=== PATIENT | female | born 1940 | race Caucasian/White ===

== ENCOUNTER 2019-09-19 07:48 | Outpatient (CLI) | payer MEDICARE, OTHER, SELFPAY ==
[2019-09-19 08:15] LABS: Hematocrit 38.7 % (37.0-47.0); Hemoglobin 13.1 g/dL (12.0-15.0); Mean Corpuscular HGB Conc 33.9 g/dl (32-36); Mean Corpuscular Hemoglobin 33.3 pg (26-34); Mean Corpuscular Volume 98.5 fl (80-100); Mean Platelet Volume 11.5 fl (7.4-10.4); Platelet Count Result 141 k/mm3 (150-375); Red Blood Count 3.93 M/mm3 (4.2-5.4); Red Cell Distribution Width 12.5 % (11.5-14.5); White Blood Count 4.6 K/mm3 (4.5-10.0)
[2019-09-19 08:29] LABS: Alanine Aminotransferase 18 U/L (4-35); Albumin Level 4.4 g/dL (3.5-5.1); Alkaline Phosphatase 40 U/L (38-126); Anion Gap 11.5 mmol/L (7-16); Aspartate Amino Transferase 32 U/L (14-36); Bilirubin,Total 0.7 mg/dL (0.2-1.3); Blood Urea Nitrogen 16 mg/dL (7-17); Calcium 9.2 mg/dL (8.4-10.2); Carbon Dioxide 26 mmol/L (22-30); Chloride 105 mmol/L (98-107); Cholesterol 202 mg/dL (0-200); Estimated Glomerular Filt Rate 60; Glucose 90 mg/dL (65-105); HDL Direct 64 mg/dL; Potassium 4.5 mmol/L (3.4-5.0); Sodium 138 mmol/L (137-145); Triglycerides 113 mg/dL (<150)
[2019-09-19 08:40] LABS: LDL Cholesterol Direct 111 mg/dL
[2019-09-19 09:11] LABS: Free T4 Free Thyroxine 0.75 ng/mL (0.78-2.19)
[2019-09-19 09:42] LABS: Folic Acid > 20.0 ng/mL (2.76->20)
== END 2019-09-19 07:49 | disposition home or self-care (01) ==
PROVIDERS: PCP Internal Medicine; Visit Provider Internal Medicine
DX: E03.9 Hypothyroidism, unspecified (principal); R53.83 Other fatigue; E78.49 Other hyperlipidemia
CPT/HCPCS: 36415; 80053; 80061; 82607; 82746; 84439; 84443; 85027

== ENCOUNTER 2019-12-13 08:18 | Outpatient (CLI) | payer MEDICARE, OTHER, SELFPAY ==
--- NOTE | 2019-12-13 11:00 | NEURO_ITS ---
Patient Number: [id number] Impression: # Complains of imbalance; Not diabetic. # No Carpal Tunnel Syndrome or ulnar neuropathy. 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 # Needle/EMG exam abnormal in lower extremities with neurogenic changes. Nerve Conduction Studies Anti Sensory Summary Table Stim Site NR Peak (ms) P-T Amp (?V) Site1 Site2 Delta-P (ms) Dist (cm) Aston (m/s) Left Median Anti Sensory (2-3nd Digit) Wrist 3.3 49.3 Wrist 2-3nd Digit 3.3 14.0 42 Wrist 3.5 49.4 Wrist 2-3nd Digit 3.3 14.0 42 Right Median Anti Sensory (2-3nd Digit) Wrist 3.4 28.6 Wrist 2-3nd Digit 3.4 14.0 41 Wrist 3.6 31.6 Wrist 2-3nd Digit 3.4 14.0 41 Left Radial Anti Sensory (Base 1st Digit) Wrist 2.2 22.3 Wrist Base 1st Digit 2.2 0.0 Right Radial Anti Sensory (Base 1st Digit) Wrist 2.0 21.3 Wrist Base 1st Digit 2.0 0.0 Left Sup Fibular Anti Sensory (Ant Lat Mall) 14 cm 4.1 16.6 14 cm Ant Lat Mall 4.1 16.0 39 Right Sup Fibular Anti Sensory (Ant Lat Mall) 14 cm 4.4 12.1 14 cm Ant Lat Mall 4.4 16.0 36 Left Sural Anti Sensory (Lat Mall) Calf 4.0 4.4 Calf Lat Mall 4.0 16.0 40 Right Sural Anti Sensory (Lat Mall) Calf 4.1 8.5 Calf Lat Mall 4.1 16.0 39 Left Ulnar Anti Sensory (5th Digit) Wrist 2.8 66.8 Wrist 5th Digit 2.8 14.0 50 Right Ulnar Anti Sensory (5th Digit) Wrist 2.6 41.7 Wrist 5th Digit 2.6 14.0 54 Motor Summary Table Stim Site NR Onset (ms) O-P Amp (mV) Site1 Site2 Delta-0 (ms) Dist (cm) Aston (m/s) Left Median Motor (Abd Poll Brev) Wrist 3.4 1.0 Elbow Wrist 5.4 28.0 52 Elbow 8.8 1.1 Right Median Motor (Abd Poll Brev) Wrist 3.3 3.9 Elbow Wrist 5.5 29.0 53 Elbow 8.8 1.5 Left Peroneal Motor (Vastus Med) NO RESPONSE Ankle NR Popit Ankle 0.0 Popit NR Right Peroneal Motor (Vastus Med) NO RESPONSE Ankle NR Popit Ankle 0.0 Popit NR Left Tibial Motor (Abd Eugene Brev) Ankle 4.5 1.0 Knee Ankle 9.8 44.0 45 Knee 14.3 1.3 Right Tibial Motor (Abd Eugene Brev) Ankle 4.5 1.6 Knee Ankle 9.8 43.0 44 Knee 14.3 1.5 Left Ulnar Motor (Abd Dig Minimi) Wrist 2.4 5.0 A Elbow Wrist 4.9 27.0 55 A Elbow 7.3 3.9 Right Ulnar Motor (Abd Dig Minimi) Wrist 2.7 5.1 A Elbow Wrist 5.3 28.0 53 A Elbow 8.0 4.4 F Wave Studies NR F-Lat (ms) L-R F-Lat (ms) Left Median (Mrkrs) (Abd Poll Brev) 28.17 0.06 Right Median (Mrkrs) (Abd Poll Brev) 28.23 0.06 Left Peroneal (Mrkrs) (EDB) DISPERSED RESPONSE NR Right Peroneal (Mrkrs) (EDB) 56.02 Left Tibial (Mrkrs) (Abd Hallucis) 56.85 0.40 Right Tibial (Mrkrs) (Abd Hallucis) 56.46 0.40 Left Ulnar (Mrkrs) (Abd Dig Min) 28.85 0.18 Right Ulnar (Mrkrs) (Abd Dig Min) 28.67 0.18 EMG Side Muscle Nerve Root Ins Act Fibs Amp Dur Recrt Comment Right 1stDorInt Ulnar C8-T1 Nml Nml Nml Nml Nml Right Ext Indicis Radial (Post Int) C7-8 Nml Nml Nml Nml Nml Right Ext Digitorum Radial (Post Int) C7-8 Nml Nml Nml Nml Nml Right BrachioRad Radial C5-6 Nml Nml Nml Nml Nml Right PronatorTeres Median C6-7 Nml Nml Nml Nml Nml Right Abd Poll Brev Median C8-T1 Nml Nml Nml Nml Nml
== END 2019-12-13 08:19 | disposition home or self-care (01) ==
PROVIDERS: PCP Internal Medicine; Visit Provider Psychiatry & Neurology Neurology
DX: G62.9 Polyneuropathy, unspecified (principal)
CPT/HCPCS: 95886; 95913

== ENCOUNTER 2019-12-23 08:14 | Outpatient (CLI) | payer MEDICARE, OTHER, SELFPAY ==
--- NOTE | ~2019-12-23 | MR_ITS ---
EXAMINATION: MR brain/brain stem wo con EXAM DATE: 12/23/2019 10:44 INDICATION: Memory loss. TECHNIQUE: Magnetic resonance imaging (MRI) of the brain/brain stem obtained without contrast. Corwinitt al T1, axial diffusion, gradient echo (T2*), T1, T2, FLAIR sequences obtained. There is no prior st udy for comparison. FINDINGS: There are no areas of restricted diffusion to suggest acute infarction. There is no acute hemorrhage seen on the T2*, a hemosiderin sensitive sequence. No intraparenchymal brain mass lesion. There is mild periventricular and subcortical T2/FLAIR signal hyperintensity, nonspecific but probab ly related to small vessel ischemic disease (microangiopathy). There is moderate prominence of the sulci and ventricles related to cerebral atrophy. There are no extra-axial collections. Flow voids are seen in the cerebral arteries on the T2-weighted sequences consistent with their expected patenc y. The orbits are unremarkable. Soft tissue is unremarkable. IMPRESSION: 1. No acute intracranial findings. 2. Chronic age related findings. Reviewed, dictated and finalized at location B. EL RIFLER
--- NOTE | ~2019-12-23 | MR_ITS ---
EXAMINATION: MR cervical spine wo con DATE: 12/23/2019 11:03 INDICATION: Cervical disc disorder with myelopathy. TECHNIQUE: Magnetic resonance imaging (MRI) of the cervical spine was performed without intravenous c ontrast. Sequences included sagittal T2-weighted FSE, sagittal STIR FSE, sagittal T1-weighted FSE, ax ial MERGE, and axial T2-weighted FSE. COMPARISON: None FINDINGS: There is 6 degrees levocurvature of cervical spine. There is kyphosis of lower cervical spi ne. Vertebral body heights are normal. There is severely decreased disc height at C4-C5 and moderatel y decreased disc height at C5-C6, C6-C7, and C7-T1. The spinal cord signal intensity is normal. The f ollowing disc levels are specifically discussed: C2-C3: There is a central extrusion. There is no uncovertebral joint osteoarthritis. There is severe right and mild left facet joint osteoarthritis. There is mild right neural foraminal stenosis. There is no central canal stenosis. C3-C4: The disc is bulging. There is mild bilateral uncovertebral joint osteoarthritis. There is tatiana re right and moderate left facet joint osteoarthritis. There is moderate right and mild left neural f oraminal stenosis. There is mild central canal stenosis. C4-C5: The disc is bulging. There is severe bilateral uncovertebral joint osteoarthritis. There is an kylosis of right facet joint with moderate hypertrophy. There is mild bilateral neural foraminal sten osis. There is mild central canal stenosis. C5-C6: The disc is bulging. There is severe bilateral uncovertebral joint osteoarthritis. There is mo derate bilateral facet joint osteoarthritis. There is mild right and moderate left neural foraminal s tenosis. There is mild central canal stenosis. C6-C7: The disc is bulging. There is severe bilateral uncovertebral joint osteoarthritis. There is mi ld bilateral facet joint osteoarthritis. There is mild bilateral neural foraminal stenosis. There is mild central canal stenosis. C7-T1: The disc is bulging. There is mild right and severe left uncovertebral joint osteoarthritis. T here is severe right and moderate left facet joint osteoarthritis. There is mild bilateral neural for aminal stenosis. There is no central canal stenosis. IMPRESSION: 1. Severe cervical spondylosis. Reviewed, dictated and finalized at location A. ADMINISTRATOR
--- NOTE | 2019-12-27 10:15 | WPDNEUROLOGY ---
Neurology EEG Report General Information Date of Study: 12/23/19 TEST EEG DIAGNOSIS memory loss CONDITION OF RECORDING awake and drowsy EEG NUMBER [id number] CLINICAL HISTORY patient reported she has episodes of forgetfulness and sometime has trouble walking. She tends to veer off to the left. EEG DESCRIPTION Basic resting occipital frequency consists of low to medium voltage 8 to 10 hertz per 2nd alpha admixed with large amount of low-voltage 15 to 18 hertz per 2nd beta. Photic stimulation produced poor drive. hyperventilation not done. Bilateral symmetrical sleep activity seen during sleep .non paroxysmal, nonfocal ,nonlateralizing. IMPRESSION normal record during wakefulness drowsiness and sleep
== END 2019-12-23 08:15 | disposition home or self-care (01) ==
PROVIDERS: PCP Internal Medicine; Visit Provider Psychiatry & Neurology Neurology
DX: R41.3 Other amnesia (principal); M50.00 Cervical disc disorder with myelopathy, unspecified cervical region; M47.892 Other spondylosis, cervical region
CPT/HCPCS: 70551; 72141; 95816

== ENCOUNTER 2020-03-09 09:35 | Outpatient (CLI) | payer MEDICARE, OTHER, SELFPAY ==
[2020-03-09 10:11] LABS: Basophils Absolute Auto 0.1 K/mm3 (0.0-0.1); Basophils Percent Auto 1.1 % (0.2-1.2); Eosinophils Absolute Auto 0.1 K/mm3 (0-0.3); Eosinophils Percent Auto 2.9 % (0-4.4); Hematocrit 39.7 % (37.0-47.0); Hemoglobin 13.5 g/dL (12.0-15.0); Immature Granulocyte Absolute 0.01 K/mm3 (0.00-0.031); Immature Granulocyte Percent A 0.2 % (0-0.5); Immature Platelet Fraction Pct 10.3 % (0.9-11.2); Lymphocytes Absolute Auto 1.95 K/mm3 (0.9-3.2); Lymphocytes Percent Auto 43.4 % (18.3-44.2); Mean Corpuscular Hemoglobin 34.1 pg (26-34); Mean Corpuscular Volume 100.3 fl (80-100); Mean Platelet Volume 11.5 fl (7.4-10.4); Monocytes Absolute Auto 0.4 K/mm3 (0.1-0.6); Monocytes Percent Auto 8.5 % (2.6-8.5); Neutrophils Percent Auto 43.9 % (45.5-73.1); Platelet Count Result 147 k/mm3 (150-375); Red Blood Count 3.96 M/mm3 (4.2-5.4); Red Cell Distribution Width 12.7 % (11.5-14.5); White Blood Count 4.5 K/mm3 (4.5-10.0)
[2020-03-09 10:21] LABS: Alanine Aminotransferase 20 U/L (4-35); Albumin Level 4.4 g/dL (3.5-5.1); Alkaline Phosphatase 45 U/L (38-126); Anion Gap 1 mmol/L (8-16); Aspartate Amino Transferase 33 U/L (14-36); Bilirubin,Total 0.8 mg/dL (0.2-1.3); Blood Urea Nitrogen 18 mg/dL (7-17); Calcium 9.6 mg/dL (8.4-10.2); Carbon Dioxide 30 mmol/L (22-30); Chloride 106 mmol/L (98-107); Cholesterol 211 mg/dL (0-200); Estimated Glomerular Filt Rate 53; Glucose 95 mg/dL (65-105); HDL Direct 72 mg/dL; Potassium 4.7 mmol/L (3.4-5.0); Sodium 137 mmol/L (137-145); Triglycerides 159 mg/dL (<150)
[2020-03-09 10:34] LABS: LDL Cholesterol Direct 115 mg/dL
[2020-03-09 11:15] LABS: Free T4 Free Thyroxine 0.83 ng/mL (0.78-2.19)
[2020-03-09 11:36] LABS: Folic Acid > 20.0 ng/mL (2.76->20)
== END 2020-03-09 09:36 | disposition home or self-care (01) ==
PROVIDERS: Family Provider Internal Medicine; PCP Internal Medicine; Visit Provider Internal Medicine
DX: R53.83 Other fatigue (principal); R79.89 Other specified abnormal findings of blood chemistry; E03.9 Hypothyroidism, unspecified; E78.49 Other hyperlipidemia
CPT/HCPCS: 36415; 80053; 80061; 82607; 82746; 84439; 84443; 85025; 85055

== ENCOUNTER 2020-06-12 08:52 | Outpatient (CLI) | payer MEDICARE, OTHER, SELFPAY ==
--- NOTE | ~2020-06-12 | MM_ITS ---
EXAMINATION: MM screening [facility] BI w [facility]ides HISTORY: Screening mammogram TECHNIQUE: Craniocaudal and mediolateral oblique 3-D tomosynthesis images were obtained and synthetic 2-D images were generated. CAD analysis was submitted and interpreted. COMPARISON: 12/07/2018, 11/16/2017, 11/03/2016 bilateral digital screening mammogram examinations BREAST PARENCHYMAL COMPOSITION: The breasts are heterogeneously dense, which may obscure small masses . FINDINGS: There is no evidence of suspicious mass, calcification, or architectural distortion to sugg est malignancy in either breast. There has been no suspicious interval change. IMPRESSION: 1. No mammographic evidence of malignancy. 2. Recommend routine screening mammography in one year. BI-RADS Category 1: Negative Reviewed, dictated and finalized at location A.
== END 2020-06-12 08:53 | disposition home or self-care (01) ==
LOC: ANHIMG 08:58
PROVIDERS: PCP Internal Medicine; Visit Provider Obstetrics & Gynecology
DX: Z12.31 Encounter for screening mammogram for malignant neoplasm of breast (principal)
CPT/HCPCS: 77063; 77067

== ENCOUNTER 2020-07-18 13:24 | Outpatient (CLI) | payer MEDICARE, OTHER, SELFPAY ==
--- NOTE | ~2020-07-18 | XR_ITS ---
XR lumbar spine min 4V DATE: 07/18/2020 13:44 INDICATION: Low back pain. No injury. TECHNIQUE: AP projection. Flexion, extension and neutral lateral views. COMPARISON: None FINDINGS: There is moderate rotatory dextroscoliosis of the lumbar spine. Diffuse osteopenia. There is a transitional lumbosacral vertebra. There is grade 1 anterolisthesis at L5-S1, stable in flexion, extension and neutral. There is moderate degenerative disc disease of the lumbar spine. No fracture or bone destruction is e vident. The lumbar pedicles appear intact. The sacral iliac joints appear unremarkable. IMPRESSION: Dextroscoliosis Osteopenia Grade 1 anterolisthesis at L5-S1 Moderate degenerative disc disease Reviewed, dictated and finalized at location A.
== END 2020-07-18 13:25 | disposition home or self-care (01) ==
LOC: ANHIMG 13:27
PROVIDERS: PCP Internal Medicine; Visit Provider Nurse Practitioner Family
DX: M47.817 Spondylosis without myelopathy or radiculopathy, lumbosacral region (principal)
CPT/HCPCS: 72110

== ENCOUNTER → 2020-08-22 09:46 | Outpatient (CLI) | payer MEDICARE, OTHER, SELFPAY ==
--- NOTE | ~2020-08-22 | MR_ITS ---
EXAMINATION: MR lumbar spine wo con DATE: 08/22/2020 10:53 INDICATION: Low back pain. TECHNIQUE: Magnetic resonance imaging (MRI) of the lumbar spine was performed without intravenous con trast. Sequences included sagittal T2-weighted FSE, sagittal T2-weighted FS FSE, sagittal T1-weighted FSE, and axial T2-weighted FSE. COMPARISON: Lumbar spine radiograph 07/18/2020, chest 2 views 12/01/2012 FINDINGS: There are hypoplastic ribs at L1. S1 is a transitional segment. There is 3 mm anterolisthes is of L4 on L5 and 6 mm anterolisthesis of L5 on S1. There is 18 degrees dextroscoliosis of thoracolu mbar spine. Vertebral body heights are normal. There is mildly decreased disc height at T12-L1, L1-L2 , and L2-L3, moderately decreased disc height at L3-L4, and mildly decreased L4-L5. There is ligame ntum flavum hypertrophy at the disc levels from L1-L2 through L4-L5. The distal spinal cord signal in tensity is normal. The conus medullaris is at L1. The following disc levels are specifically discusse d: L1-L2: The disc is bulging. There is severe bilateral facet joint osteoarthritis. There is mild bilat eral neural foraminal stenosis. There is mild central canal stenosis. L2-L3: The disc is bulging and has an annular fissure. There is severe bilateral facet joint osteoart hritis. There is mild right and moderate left neural foraminal stenosis. There is mild central canal stenosis. L3-L4: The disc is bulging and has an annular fissure. There is severe bilateral facet joint osteoart hritis. There is mild bilateral neural foraminal stenosis. There is mild central canal stenosis. L4-L5: The disc is bulging. There is severe bilateral facet joint osteoarthritis. There is mild bilat eral neural foraminal stenosis. There is mild central canal stenosis. L5-S1: The disc is bulging. There is severe bilateral facet joint osteoarthritis. There is moderate b ilateral neural foraminal stenosis. There is mild central canal stenosis. IMPRESSION: 1. Moderate lumbar spondylosis. Reviewed, dictated and finalized at location A.
== END ==
PROVIDERS: PCP Internal Medicine; Visit Provider Nurse Practitioner Family
DX: M47.896 Other spondylosis, lumbar region (principal)
CPT/HCPCS: 72148

== ENCOUNTER 2020-08-23 07:55 | Outpatient (CLI) | payer MEDICARE, OTHER, SELFPAY ==
[2020-08-23 08:45] LABS: Basophils Absolute Auto 0.1 K/mm3 (0.0-0.1); Basophils Percent Auto 1.4 % (0.2-1.2); Eosinophils Absolute Auto 0.2 K/mm3 (0-0.3); Eosinophils Percent Auto 3.8 % (0-4.4); Hematocrit 38.6 % (37.0-47.0); Hemoglobin 12.9 g/dL (12.0-15.0); Immature Granulocyte Absolute 0.01 K/mm3 (0.00-0.031); Immature Granulocyte Percent A 0.2 % (0-0.5); Immature Platelet Fraction Pct 9.9 % (0.9-11.2); Lymphocytes Absolute Auto 2.09 K/mm3 (0.9-3.2); Lymphocytes Percent Auto 47.3 % (18.3-44.2); Mean Corpuscular HGB Conc 33.4 g/dl (32-36); Mean Corpuscular Hemoglobin 33.9 pg (26-34); Mean Corpuscular Volume 101.6 fl (80-100); Mean Platelet Volume 11.5 fl (7.4-10.4); Monocytes Absolute Auto 0.4 K/mm3 (0.1-0.6); Neutrophils Absolute Auto 1.7 K/mm3 (1.3-6.7); Neutrophils Percent Auto 38.3 % (45.5-73.1); Platelet Count Result 141 k/mm3 (150-375); Red Cell Distribution Width 13.3 % (11.5-14.5); White Blood Count 4.4 K/mm3 (4.5-10.0)
[2020-08-23 09:04] LABS: Alanine Aminotransferase 18 U/L (4-35); Albumin Level 4.3 g/dL (3.5-5.1); Alkaline Phosphatase 46 U/L (38-126); Anion Gap 9 mmol/L (8-16); Aspartate Amino Transferase 31 U/L (14-36); Bilirubin,Total 0.9 mg/dL (0.2-1.3); Blood Urea Nitrogen 17 mg/dL (7-17); Calcium 9.6 mg/dL (8.4-10.2); Carbon Dioxide 25 mmol/L (22-30); Chloride 105 mmol/L (98-107); Cholesterol 218 mg/dL (0-200); Estimated Glomerular Filt Rate 60; Glucose 95 mg/dL (65-105); HDL Direct 70 mg/dL; Potassium 4.4 mmol/L (3.4-5.0); Sodium 139 mmol/L (137-145); Triglycerides 136 mg/dL (<150)
[2020-08-23 09:15] LABS: LDL Cholesterol Direct 98 mg/dL
[2020-08-23 10:14] LABS: Folic Acid > 20.0 ng/mL (2.76->20)
[2020-08-23 10:32] LABS: Free T4 Free Thyroxine 0.92 ng/mL (0.78-2.19)
== END 2020-08-23 07:56 | disposition home or self-care (01) ==
LOC: ANHLAB 07:58
PROVIDERS: PCP Internal Medicine; Visit Provider Internal Medicine
DX: E03.9 Hypothyroidism, unspecified (principal); R53.83 Other fatigue; E78.49 Other hyperlipidemia
CPT/HCPCS: 36415; 80053; 80061; 82607; 82746; 84439; 84443; 85025; 85055

== ENCOUNTER 2020-10-23 11:01 | Emergency (ER) | payer MEDICARE, OTHER, SELFPAY ==
[2020-10-23 11:30] VITALS: BP 122/72; PULSE 69; RESP 14; TEMP 36.1; O2SAT 99
[2020-10-23 12:31] LABS: Basophils Absolute Auto 0.1 K/mm3 (0.0-0.1); Basophils Percent Auto 0.8 % (0.2-1.2); Eosinophils Absolute Auto 0.1 K/mm3 (0-0.3); Eosinophils Percent Auto 1.4 % (0-4.4); Hematocrit 36.3 % (37.0-47.0); Hemoglobin 12.4 g/dL (12.0-15.0); Immature Granulocyte Absolute 0.03 K/mm3 (0.00-0.031); Immature Granulocyte Percent A 0.5 % (0-0.5); Immature Platelet Fraction Pct 9.5 % (0.9-11.2); Lymphocytes Absolute Auto 1.81 K/mm3 (0.9-3.2); Lymphocytes Percent Auto 27.9 % (18.3-44.2); Mean Corpuscular HGB Conc 34.2 g/dl (32-36); Mean Corpuscular Hemoglobin 34.3 pg (26-34); Mean Corpuscular Volume 100.3 fl (80-100); Mean Platelet Volume 11.6 fl (7.4-10.4); Monocytes Absolute Auto 0.5 K/mm3 (0.1-0.6); Monocytes Percent Auto 7.7 % (2.6-8.5); Neutrophils Percent Auto 61.7 % (45.5-73.1); Platelet Count Result 148 k/mm3 (150-375); Red Blood Count 3.62 M/mm3 (4.2-5.4); Red Cell Distribution Width 12.6 % (11.5-14.5); White Blood Count 6.5 K/mm3 (4.5-10.0)
[2020-10-23 12:40] LABS: Alanine Aminotransferase 14 U/L (4-35); Albumin Level 4.2 g/dL (3.5-5.1); Alkaline Phosphatase 43 U/L (38-126); Anion Gap 6 mmol/L (8-16); Aspartate Amino Transferase 26 U/L (14-36); Bilirubin,Total 0.8 mg/dL (0.2-1.3); Blood Urea Nitrogen 15 mg/dL (7-17); Calcium 9.5 mg/dL (8.4-10.2); Carbon Dioxide 25 mmol/L (22-30); Chloride 106 mmol/L (98-107); Estimated CRCL calculation 42 ml/min; Estimated Glomerular Filt Rate 60; Glucose 101 mg/dL (65-110); Lipase 27 U/L (23-300); Potassium 4.2 mmol/L (3.4-5.0); Sodium 137 mmol/L (137-145)
[2020-10-23 16:31] VITALS: BP 124/74; PULSE 66; RESP 18; TEMP 36.7; O2SAT 88
[2020-10-23 16:52] VITALS: PULSE 80; RESP 12; O2SAT 97
[2020-10-23 18:48] VITALS: BP 159/83; PULSE 63; RESP 16; TEMP 36.7; O2SAT 100
--- NOTE | 2020-10-23 19:17 | ED.GENADULT ---
HPI - General Adult General Chief complaint: Nausea/Vomiting/Diarrhea Stated complaint: digestive problem, diarrhea Time Seen by Provider: 10/23/20 18:48 Source: patient Mode of arrival: ambulatory Limitations: no limitations History of Present Illness HPI narrative: Patient presents for evaluation of GI symptoms. She indicates that several weeks ago she was experiencing constipation, not having bowel movement for 1 week. Her symptoms resolved without any intervention beyond her typical day to day behavior. She does consume prune juice daily. She states after her bout of constipation, she experienced diarrhea, with approximately 10 episodes daily. Her normal bowel pattern is once every 3 days. She has not experienced any blood or mucus in the stool/abdominal pain. She denies any fever or chills. No history of abdominal surgeries. She states her last colonoscopy was about 5 years ago. She states she has always had normal colonoscopies without the presence of polyps. She elected to not proceed with any further colonoscopies. She contacted GI, Dr. Dalal, and was advised that it would be several months before he could see her unless she was seen in the ER before his evaluation. She states that she did have c diff in the past but her current symptoms are not consistent with those experienced in the past with c diff. Related Data Home Medications Medication Instructions Recorded Confirmed turmeric 400 mg capsule mg PO 03/29/19 10/02/20 vitamin B complex 1 cap PO DAILY 03/29/19 10/02/20 cholecalciferol (vitamin D3) 25 25 mcg PO DAILY 03/23/20 10/02/20 mcg (1,000 unit) capsule donepezil 5 mg tablet 5 mg PO ONCE 03/23/20 10/02/20 Allergies Allergy/AdvReac Type Severity Reaction Status Date / Time bee pollen Allergy Intermediate Swelling Verified 10/23/20 19:42 venom-wasp Allergy Intermediate swelling Verified 10/23/20 19:42 adhesive Allergy Unknown RASH Verified 10/23/20 19:42 Review of Systems Review of Systems: CONSTITUTIONAL: Denies fever, chills, or sweats. EYES: Denies visual changes, redness, or discharge. ENT: Denies rhinorrhea, congestion, sore throat, or otalgia. CARDIOVASCULAR: Denies chest pain, palpitations, or edema. RESPIRATORY: Denies cough or dyspnea. GASTROINTESTINAL: Reports recent constipation, now resolved. Reports diarrhea. Denies abdominal pain, nausea, or vomiting. GENITOURINARY: Denies dysuria or hematuria. SKIN: Denies rash or itching. MUSCULOSKELETAL: Denies back pain, joint pain, or myalgia. NEUROLOGIC: Denies headache, numbness, dizziness, or weakness. PSYCHIATRIC: Denies anxiety or depression. FORMERLY [facility] Past Medical History Medical History (Updated 10/23/20 @ 20:05 by NORMAN NaranjoP, ) Anxiety disorder C. difficile colitis Depression Fatigue Hypothyroidism Other hyperlipidemia Sciatica of right side Surgical History Surgical History History of shoulder surgery Family History Family History Mother Patient's mother is Father Patient's father is Social History Social History Smoking status: Former smoker Second hand tobacco smoke exposure: No Smoking end date: 02/17/80 Alcohol intake: current Exam Narrative: GENERAL: Well-appearing, well-nourished, and in no acute distress. HEAD: Normocephalic, atraumatic. EYES: PERRLA and EOMI. ENT: Nares clear, no rhinorrhea or epistaxis. Mucous membranes moist. Oropharynx without tonsillar hypertrophy exudate or other lesions. Bilateral TMs pearly back nonbulging NECK: Supple. No adenopathy or masses. No carotid bruits or JVD CHEST: Clear to auscultation. No respiratory distress. No wheezes rales or rhonchi HEART: Regular rate and rhythm. No murmur heard. Normal peripheral pulses. ABDOMEN: Soft, non
[2020-10-23 20:20] VITALS: BP 130/80; PULSE 66; RESP 18; TEMP 36.8; O2SAT 98
== END 2020-10-23 20:20 | disposition home or self-care (01) ==
PROVIDERS: Emergency Medicine; Emergency Provider Nurse Practitioner; PCP Internal Medicine
DX: K59.01 Slow transit constipation (principal); R19.7 Diarrhea, unspecified; F41.9 Anxiety disorder, unspecified; F32.9 Major depressive disorder, single episode, unspecified; E03.9 Hypothyroidism, unspecified
CPT/HCPCS: 36415; 80053; 83690; 85025; 85055; 99283

== ENCOUNTER 2021-03-18 11:02 | Outpatient (CLI) | payer MEDICARE, OTHER, SELFPAY ==
[2021-03-18 11:57] LABS: Hematocrit 35.7 % (37.0-47.0); Hemoglobin 11.9 g/dL (12.0-15.0); Immature Platelet Fraction Pct 8.6 % (0.9-11.2); Mean Corpuscular HGB Conc 33.3 g/dl (32-36); Mean Corpuscular Hemoglobin 33.1 pg (26-34); Mean Corpuscular Volume 99.4 fl (80-100); Mean Platelet Volume 11.5 fl (7.4-10.4); Red Blood Count 3.59 M/mm3 (4.2-5.4); Red Cell Distribution Width 12.8 % (11.5-14.5); White Blood Count 4.2 K/mm3 (4.5-10.0)
[2021-03-18 12:02] LABS: Alanine Aminotransferase 17 U/L (4-35); Albumin Level 4.2 g/dL (3.5-5.1); Alkaline Phosphatase 57 U/L (38-126); Anion Gap 4 mmol/L (8-16); Aspartate Amino Transferase 44 U/L (14-36); Bilirubin,Total 0.5 mg/dL (0.2-1.3); Blood Urea Nitrogen 20 mg/dL (7-17); Calcium 9.5 mg/dL (8.4-10.2); Carbon Dioxide 26 mmol/L (22-30); Chloride 103 mmol/L (98-107); Estimated Glomerular Filt Rate 53; Glucose 98 mg/dL (65-110); Potassium 4.5 mmol/L (3.4-5.0); Sodium 133 mmol/L (137-145)
[2021-03-18 12:04] LABS: Platelet Count Result 147 k/mm3 (150-375)
[2021-03-18 12:47] LABS: Basophils Absolute Auto 0.1 K/mm3 (0.0-0.1); Basophils Percent Auto 1.1 % (0.2-1.2); Eosinophils Absolute Auto 0.1 K/mm3 (0-0.3); Eosinophils Percent Auto 1.8 % (0-4.4); Lymphocytes Absolute Auto 1.57 K/mm3 (0.9-3.2); Lymphocytes Percent Auto 36.1 % (18.3-44.2); Monocytes Absolute Auto 0.5 K/mm3 (0.1-0.6); Monocytes Percent Auto 10.8 % (2.6-8.5); Neutrophils Absolute Auto 2.2 K/mm3 (1.3-6.7); Neutrophils Percent Auto 50.2 % (45.5-73.1)
== END 2021-03-18 11:03 | disposition home or self-care (01) ==
LOC: ANHLAB 11:05
PROVIDERS: PCP Internal Medicine; Visit Provider Psychiatry & Neurology Psychiatry
DX: G31.84 Mild cognitive impairment of uncertain or unknown etiology (principal)
CPT/HCPCS: 36415; 80053; 85025; 85027; 85055

== ENCOUNTER 2021-03-28 12:30 | Outpatient (CLI) | payer MEDICARE, OTHER, SELFPAY ==
--- NOTE | ~2021-03-28 | MR_ITS ---
EXAMINATION: MR brain/brain stem wo con EXAM DATE: 03/28/2021 13:16 INDICATION: Mild cognitive disorder. TECHNIQUE: Magnetic resonance imaging (MRI) of the brain/brain stem obtained without contrast. Jesus Alberto al T1, axial diffusion, gradient echo (T2*), T1, T2, FLAIR sequences obtained. Comparison is made to prior examination from 12/23/2019. FINDINGS: There are no areas of restricted diffusion to suggest acute infarction. There is no acute hemorrhage seen on the T2*, a hemosiderin sensitive sequence. No intraparenchymal brain mass lesion. There is mild periventricular and subcortical T2/FLAIR signal hyperintensity, nonspecific but probab ly related to small vessel ischemic disease (microangiopathy). There is mild prominence of the sulc i and ventricles related to cerebral atrophy. There are no extra-axial collections. Flow voids are seen in the cerebral arteries on the T2-weighted sequences consistent with their expected patency. The orbits are unremarkable. Soft tissue is unremarkable. IMPRESSION: 1. No acute intracranial findings. 2. Chronic age related findings. Reviewed, dictated and finalized at location B. PACKER
== END 2021-03-28 12:31 | disposition home or self-care (01) ==
LOC: ANHIMG 12:35
PROVIDERS: PCP Internal Medicine; Visit Provider Psychiatry & Neurology Psychiatry
DX: G31.84 Mild cognitive impairment of uncertain or unknown etiology (principal)
CPT/HCPCS: 70551

== ENCOUNTER 2021-04-09 01:04 | Outpatient (CLI) | payer MEDICARE, OTHER, SELFPAY ==
--- NOTE | 2021-04-08 09:24 | PC.NURSE ---
Report to the Outpatient Waiting Room, entrance under the green pavilion located off [facility], at time __0930 on date __04/09/21 . PROCEDURE Time: 1130 . - You and your visitor will be asked a series of questions to screen for COVID 19 for your protection. - A mask is required within the hospital. Preoperative COVID Testing Requirements: No COVID Test needed if: (proof is required; if not received patient will have Rapid Test prior to entry) - Patient has received COVID Vaccine at least 14 days prior to procedure date or - Patient has positive COVID test result within last 90 days of surgery date. COVID Test needed if above criteria is not met If not COVID vaccinated a COVID test must be conducted within 72 hours of surgery and patient is asked to isolate self from time of testing until procedure. You will go to the [facility] for your COVID testing. The [facility] is located at the corner of [address] [facility]. You will only be called if COVID results are positive and your surgeon may reschedule your elective surgery date. NOTHING TO EAT OR DRINK 6 HOURS PRIOR TO PROCEDURE (0530) Take the following medications with a SIP of water the morning of surgery: __ALL ROUTINE MORNING MEDICATIONS Medications to discontinue per physician NONE Date to take last dose Please no make-up, nail greenlandic, hairspray, perfume, deodorant, or body powder the day of surgery. No jewelry (including any body piercings) or valuables the day of surgery, leave them at home. Please take a shower or bath the night before, or the morning of, surgery with an antibacterial soap. Wear comfortable, loose fitting clothing. Children are encouraged to wear pajamas. - Jewelry must be removed prior to entering the operating room. Rings and piercings that are not removed may be cut off. - The hospital will not accept responsibility for valuables. - Please leave all valuables, including medications, at home the day of surgery. If you are going home after surgery, a licensed vacuum truck driver must drive you home. - NO public transportation without another adult. - We recommend that an adult stay with you for 24 hours following discharge. - We also recommend that you do not drive, make important decision, drink alcoholic beverages, or take any drugs that were not prescribed by your health care provider for at least 24 hours after your discharge time. One visitor will be allowed to accompany the patient into the hospital. Patients visitor will be instructed to remain with patient at all times or leave the building. We will allow the visitor to come back to the postoperative area when patient is ready. Follow any additional instructions given to you from your surgeon. Telephone instructions given to ___PATIENT AND SPOUSE KEN and asked if any additional questions and then verbalized understanding. Patient advised to call surgeon office or pre surgery nurse liaison [phone] if any additional questions.
--- NOTE | 2021-04-08 09:27 | PC.NURSE ---
PATIENT AND SPOUSE MARY JANE STATES NO CHANGE IN HEALTH HX SINCE LAST INTERVIEW ON 03/25/21
--- NOTE | ~2021-04-09 | XR_ITS ---
EXAMINATION: XR lumbar puncture diagnostic EXAM DATE: 04/09/2021 11:51 INDICATION: Mild cognitive impairment. TECHNIQUE: Informed consent was obtained from the patient for doing this procedure. I discussed bene fits and risks including bleeding, infection, backache and headache. Alternatives also discussed. Rad iologist Derek James M.D. performed the procedure with date of pulsed dose reduction fluoroscopy, wit h fluoroscopic time of 0.1 minutes. The DAP for this procedure was 3.8 Gycm2. A total of 4 images o btained for the exam. A timeout procedure was performed. The back was prepped in standard sterile fashion with Betadine. L3/4 entry site was chosen under fluoroscopic guidance and infiltrated with 1% lidocaine. The thecal sac was then accessed from a right paracentral approach using a 3.5 22G needle. A total of 8 mL of clear cerebral spinal fluid were then drained and placed in 4 consecutive vials, w hich were labeled and sent to lab for analysis. There were no immediate complications. IMPRESSION: Status post fluoroscopic guided lumbar puncture. Reviewed, dictated and finalized at location A. [facility]
[2021-04-09 10:14] VITALS: BP 137/93; PULSE 60; RESP 16; TEMP 36.4; O2SAT 100; BMI 21.4
[2021-04-09 10:16] LABS: Basophils Absolute Auto 0.1 K/mm3 (0.0-0.1); Basophils Percent Auto 1.1 % (0.2-1.2); Eosinophils Absolute Auto 0.1 K/mm3 (0-0.3); Eosinophils Percent Auto 1.8 % (0-4.4); Hemoglobin 12.7 g/dL (12.0-15.0); Immature Granulocyte Absolute 0.01 K/mm3 (0.00-0.031); Immature Granulocyte Percent A 0.2 % (0-0.5); Immature Platelet Fraction Pct 7.5 % (0.9-11.2); Lymphocytes Absolute Auto 1.48 K/mm3 (0.9-3.2); Lymphocytes Percent Auto 33.8 % (18.3-44.2); Mean Corpuscular HGB Conc 34.3 g/dl (32-36); Mean Corpuscular Hemoglobin 33.7 pg (26-34); Mean Corpuscular Volume 98.1 fl (80-100); Mean Platelet Volume 11.4 fl (7.4-10.4); Monocytes Absolute Auto 0.5 K/mm3 (0.1-0.6); Monocytes Percent Auto 10.7 % (2.6-8.5); Neutrophils Absolute Auto 2.3 K/mm3 (1.3-6.7); Neutrophils Percent Auto 52.4 % (45.5-73.1); Platelet Count Result 139 k/mm3 (150-375); Red Blood Count 3.77 M/mm3 (4.2-5.4); Red Cell Distribution Width 12.6 % (11.5-14.5); White Blood Count 4.4 K/mm3 (4.5-10.0)
--- NOTE | 2021-04-09 10:19 | SUR.PREOP ---
1010; CALLED [facility] IN RADIOLOGY, PT READY PENDING LABS.
[2021-04-09 10:25] LABS: Prothrombin Time 13.2 Seconds (11.1-14.7)
[2021-04-09 11:40] VITALS: BP 136/75; PULSE 64; RESP 16; O2SAT 100
[2021-04-09 12:21] LABS: Glucose CSF 55 mg/dL (40-70); Total Protein CSF 18 mg/dL (12-60)
[2021-04-09 12:40] VITALS: BP 132/75; PULSE 63; RESP 16; O2SAT 99
[2021-04-09 13:40] VITALS: BP 131/71; PULSE 65; RESP 18; O2SAT 100
[2021-04-09 13:54] LABS: Appearance CSF Clear (Clear); CSF source CSF; Color CSF Colorless (Colorless); Nucleated Cell CSF 0 /uL (0-5); Red Blood Cell CSF 17 (0-2)
== END 2021-04-09 13:45 | disposition home or self-care (01) ==
PROVIDERS: Radiology Diagnostic Radiology; PCP Internal Medicine; Visit Provider Radiology Diagnostic Radiology
PROC: 009U3ZZ Drainage of Spinal Canal, Percutaneous Approach (ICD-10-PCS; CPT 62328; principal; 2021-04-09 11:30)
DX: G31.84 Mild cognitive impairment of uncertain or unknown etiology (principal)
CPT/HCPCS: 36415; 62328; 82542; 82945; 84157; 85025; 85055; 85610; 87070; 88108; 89051

== ENCOUNTER 2021-06-27 09:27 | Outpatient (CLI) | payer MEDICARE, OTHER, SELFPAY ==
--- NOTE | ~2021-06-27 | MM_ITS ---
EXAMINATION: MM screening [facility] BI w aristides HISTORY: Screening TECHNIQUE: Craniocaudal and mediolateral oblique 3-D tomosynthesis images were obtained and synthetic 2-D images were generated. CAD analysis was submitted and interpreted. COMPARISON: Comparison to multiple prior studies sequentially, with oldest reviewed study dated 08/2014. BREAST PARENCHYMAL COMPOSITION: There are scattered areas of fibroglandular density. FINDINGS: There is no evidence of suspicious mass, calcification, or architectural distortion to sugg est malignancy in either breast. There has been no suspicious interval change. IMPRESSION: 1. No mammographic evidence of malignancy. 2. Recommend routine screening mammography in one year. BI-RADS Category 1: Negative Reviewed, dictated and finalized at location A.
== END 2021-06-27 09:28 | disposition home or self-care (01) ==
PROVIDERS: PCP Internal Medicine; Visit Provider Internal Medicine
DX: Z12.31 Encounter for screening mammogram for malignant neoplasm of breast (principal)
CPT/HCPCS: 77063; 77067

== ENCOUNTER 2021-09-23 09:05 | Outpatient (CLI) | payer MEDICARE, OTHER, SELFPAY ==
[2021-09-23 09:54] LABS: Basophils Absolute Auto 0.1 K/mm3 (0.0-0.1); Eosinophils Absolute Auto 0.2 K/mm3 (0-0.3); Eosinophils Percent Auto 3.6 % (0-4.4); Hematocrit 37.8 % (37.0-47.0); Hemoglobin 12.4 g/dL (12.0-15.0); Immature Granulocyte Absolute 0.01 K/mm3 (0.00-0.031); Immature Granulocyte Percent A 0.2 % (0-0.5); Immature Platelet Fraction Pct 8.4 % (0.9-11.2); Lymphocytes Absolute Auto 1.42 K/mm3 (0.9-3.2); Mean Corpuscular HGB Conc 32.8 g/dl (32-36); Mean Corpuscular Volume 97.7 fl (80-100); Mean Platelet Volume 11.5 fl (7.4-10.4); Monocytes Absolute Auto 0.4 K/mm3 (0.1-0.6); Monocytes Percent Auto 7.9 % (2.6-8.5); Neutrophils Percent Auto 59.3 % (45.5-73.1); Platelet Count Result 130 k/mm3 (150-375); Red Blood Count 3.87 M/mm3 (4.2-5.4); Red Cell Distribution Width 13.1 % (11.5-14.5); White Blood Count 5.1 K/mm3 (4.5-10.0)
[2021-09-23 10:09] LABS: Alanine Aminotransferase 16 U/L (6-35); Albumin Level 4.5 g/dL (3.5-5.1); Alkaline Phosphatase 53 U/L (38-126); Anion Gap 10 mmol/L (8-16); Aspartate Amino Transferase 24 U/L (14-36); Bilirubin,Total 0.6 mg/dL (0.2-1.3); Blood Urea Nitrogen 20 mg/dL (7-17); Calcium 9.7 mg/dL (8.4-10.2); Carbon Dioxide 25 mmol/L (22-30); Chloride 104 mmol/L (98-107); Cholesterol 200 mg/dL (0-200); Estimated Glomerular Filt Rate 48; Glucose 94 mg/dL (65-110); HDL Direct 57 mg/dL; Potassium 4.5 mmol/L (3.4-5.0); Sodium 139 mmol/L (137-145); Triglycerides 123 mg/dL (<150)
[2021-09-23 10:12] LABS: Appearance Urine Clear (Clear); Bilirubin Urine Negative (Negative); Color Urine Yellow (Yellow); Glucose Urine UA Negative (Negative); Ketones Urine Negative (Negative); Leukocyte Esterase Ur Negative LEU/UL (Negative); Nitrate Urine Negative (Negative); Protein Urine Negative (Negative); Urobilinogen Urine 0.2 mg/dL (<2.0)
[2021-09-23 10:19] LABS: Free T4 Free Thyroxine 1.01 ng/mL (0.78-2.19)
[2021-09-23 10:20] LABS: LDL Cholesterol Direct 110 mg/dL
[2021-09-23 10:25] LABS: Mucus Urine Rare /lpf; Squamous Epithelial Cell Urine Few /hpf (Few); WBC Urine 0-3 /hpf
[2021-09-23 10:26] LABS: Add Urine Microscopic? YES; Blood Urine Trace-Intact (Negative)
[2021-09-23 11:13] LABS: Folic Acid 10.9 ng/mL (2.76->20)
== END 2021-09-23 09:06 | disposition home or self-care (01) ==
LOC: ANHLAB 09:09
PROVIDERS: PCP Internal Medicine; Visit Provider Internal Medicine
DX: M54.31 Sciatica, right side (principal); E03.9 Hypothyroidism, unspecified; E78.49 Other hyperlipidemia; R30.0 Dysuria
CPT/HCPCS: 36415; 80053; 80061; 81001; 82607; 82746; 84439; 84443; 85025; 85055

== ENCOUNTER → 2021-09-30 09:51 | Outpatient (CLI) | payer MEDICARE, OTHER, SELFPAY ==
[2021-09-30 11:07] LABS: SARS-CoV-2 RNA PCR Negative
== END ==
PROVIDERS: PCP Internal Medicine; Visit Provider Internal Medicine
DX: R68.89 Other general symptoms and signs (principal); Z20.822 Contact with and (suspected) exposure to COVID-19
CPT/HCPCS: C9803; U0003; U0005

== ENCOUNTER 2021-10-01 09:23 | Outpatient (CLI) | payer MEDICARE, OTHER, SELFPAY ==
--- NOTE | ~2021-10-01 | US_ITS ---
US abdomen complete EXAMINATION: US Abdomen Complete INDICATION: Nausea PROCEDURE: Realtime High Resolution abdomen ultrasound. COMPARISON: No prior studies for comparison FINDINGS: Gallbladder within normal limits. No gallstones, pericholecystic fluid, gallbladder wall t hickening or biliary dilatation. Common bile duct measures 6 mm. Liver echotexture within normal limits without focal mass. Pancreas within normal limits. Pancreati c tail is obscured by bowel gas. Spleen is unremarkeable. Renal echotexture is within normal limits bilaterally without hydronephrosis, contour deforming mass or renal stone. Right kidney measures 8.7 cm. Left kidney measures 9.9 cm. Visualized aspects of the aorta and IVC are within normal limits. Portal vein is patent. No sonograph ic Francis's sign indicated by the technologist. IMPRESSION: 1: Normal abdominal ultrasound. Reviewed, dictated and finalized at location B.
== END 2021-10-01 09:24 | disposition home or self-care (01) ==
LOC: ANHIMG 09:24
PROVIDERS: PCP Internal Medicine; Visit Provider Internal Medicine
DX: R11.0 Nausea (principal)
CPT/HCPCS: 76700

== ENCOUNTER 2021-10-05 18:21 | Emergency (ER) | payer MEDICARE, OTHER, SELFPAY ==
--- NOTE | ~2021-10-05 | CT_ITS ---
EXAMINATION: CT abdomen pelvis w con DATE: 10/05/2021 20:58 INDICATION: left lower abdominal pain TECHNIQUE: Computed tomography (CT) of the abdomen and pelvis was performed with 100 mL Omnipaque-350 intravenous contrast. Automated exposure control and iterative reconstruction technique were employe d. The dose-length product was 254.37 mGy-cm. COMPARISON: None. FINDINGS: Lower thorax: Bilateral lower lung scarring. Liver: Normal. Biliary/Gallbladder: Gallbladder is partially collapsed. No bile duct dilation. Pancreas: No mass or duct dilation. Spleen: Normal. Adrenals:No mass. Kidneys: No mass, stone, or hydronephrosis. GI tract: Mild distal esophageal and gastric wall edema. No small or large bowel dilation. Appendix n ot visualized. Mesentery/Peritoneum: No mass or free air. Retroperitoneum: No mass. Pelvis: Uterus not visualized. Small volume free pelvic fluid.. Soft Tissues: Soft tissues and body wall unremarkable. Bones: No acute osseous finding. IMPRESSION: Esophagitis/gastritis. No other acute abdominopelvic process detected. Reviewed, dictated and finalized at location K.
[2021-10-05 18:35] VITALS: BP 151/74; PULSE 67; RESP 16; TEMP 36.6; O2SAT 100
[2021-10-05 18:54] LABS: Basophils Absolute Auto 0.1 K/mm3 (0.0-0.1); Basophils Percent Auto 0.7 % (0.2-1.2); Eosinophils Absolute Auto 0.2 K/mm3 (0-0.3); Eosinophils Percent Auto 2.7 % (0-4.4); Hematocrit 37.1 % (37.0-47.0); Hemoglobin 12.6 g/dL (12.0-15.0); Immature Granulocyte Absolute 0.02 K/mm3 (0.00-0.031); Immature Granulocyte Percent A 0.3 % (0-0.5); Immature Platelet Fraction Pct 7.9 % (0.9-11.2); Lymphocytes Absolute Auto 2.63 K/mm3 (0.9-3.2); Mean Corpuscular Hemoglobin 32.8 pg (26-34); Mean Corpuscular Volume 96.6 fl (80-100); Mean Platelet Volume 11.4 fl (7.4-10.4); Monocytes Absolute Auto 0.6 K/mm3 (0.1-0.6); Monocytes Percent Auto 9.2 % (2.6-8.5); Neutrophils Absolute Auto 3.4 K/mm3 (1.3-6.7); Neutrophils Percent Auto 49.1 % (45.5-73.1); Platelet Count Result 149 k/mm3 (150-375); Red Blood Count 3.84 M/mm3 (4.2-5.4); Red Cell Distribution Width 13.2 % (11.5-14.5); White Blood Count 6.9 K/mm3 (4.5-10.0)
[2021-10-05 19:02] LABS: Alanine Aminotransferase 24 U/L (6-35); Albumin Level 4.8 g/dL (3.5-5.1); Alkaline Phosphatase 66 U/L (38-126); Anion Gap 9 mmol/L (8-16); Aspartate Amino Transferase 30 U/L (14-36); Bilirubin,Total 0.5 mg/dL (0.2-1.3); Blood Urea Nitrogen 20 mg/dL (7-17); Calcium 9.7 mg/dL (8.4-10.2); Carbon Dioxide 24 mmol/L (22-30); Chloride 106 mmol/L (98-107); Estimated CRCL calculation 34 ml/min; Estimated Glomerular Filt Rate 48; Glucose 96 mg/dL (65-110); Lipase 76 U/L (23-300); Potassium 4.1 mmol/L (3.4-5.0); Sodium 139 mmol/L (137-145)
--- NOTE | 2021-10-05 19:56 | ED.ABDPAIN ---
HPI - Abdominal Pain General Chief Complaint: Abdominal Pain Stated Complaint: LLQ pain Time Seen by Provider: 10/05/21 19:28 Source: patient, RN notes reviewed and old records reviewed Mode of arrival: ambulatory Limitations: no limitations History of Present Illness HPI narrative: This is an 81 year old female who presents for evaluation of left lower abdominal pain. She was sitting on her couch when she developed sudden onset left lower abdominal pain. She describes pain has intermittent cramping that last for a few minutes before it resolves. She states her pain is worse with movement. She denies associated nausea, vomiting, diarrhea, fever or urinary symptoms. She has not taken anything for pain and she denies having pain now. She denies history of diverticulitis or kidney stones. She also states her pain seems to migrates to other areas of her abdomen Related Data Home Medications Medication Instructions Recorded Confirmed bupropion HCl 150 mg 24 hr tablet, 150 mg PO QAM 03/25/21 09/21/21 extended release cholecalciferol (vitamin D3) 50 50 mcg PO DAILY 03/25/21 09/21/21 mcg (2,000 unit) capsule cyanocobalamin (vitamin B-12) 100 100 mcg PO DAILY 03/25/21 09/21/21 mcg tablet ibuprofen 800 mg tablet 800 mg PO BID PRN Pain 03/25/21 09/21/21 levothyroxine 50 mcg tablet 50 mcg PO QAM 03/25/21 09/21/21 (Synthroid) memantine 5 mg tablet 5 mg PO QAM 03/25/21 09/21/21 trazodone 50 mg tablet 50 mg PO HS 03/25/21 09/21/21 CBD BYMOUTH 09/20/21 09/21/21 duloxetine 30 mg capsule,delayed 30 mg PO DAILY 09/20/21 09/21/21 release ropinirole 0.25 mg tablet 0.25 mg PO BID 09/20/21 09/21/21 sertraline 50 mg tablet (Zoloft) 50 mg PO DAILY 09/20/21 09/21/21 Allergies Allergy/AdvReac Type Severity Reaction Status Date / Time bee pollen Allergy Intermediate Swelling Verified 10/05/21 18:39 venom-wasp Allergy Intermediate swelling Verified 10/05/21 18:39 AT SITE adhesive AdvReac Unknown REDNESS Verified 10/05/21 18:39 Review of Systems Review of Systems: All systems reviewed & are unremarkable except as noted in HPI and below Cardiovascular: Cardiovascular: Denies chest pain Gastrointestinal: Gastrointestinal: Reports abdominal pain, Denies diarrhea, Denies nausea and Denies vomiting Genitourinary: Genitourinary: Denies nocturia and Denies dysuria Musculoskeletal: Musculoskeletal: Denies back pain PMFSH Past Medical History Medical History Anxiety disorder C. difficile colitis Depression Fatigue Hypothyroidism Other hyperlipidemia Sciatica of right side Surgical History Surgical History History of shoulder surgery Family History Family History Mother Patient's mother is Father Patient's father is Social History Social History Smoking packs per day: 0.5 Smoking cigarettes per day: 10.0 Years smoked: 20 Smoking pack-years: 10.00 Smoking status: Former smoker Tobacco type: cigarettes Second hand tobacco smoke exposure: No Smoking end date: 02/17/80 Alcohol intake: current Drinks per week: 16 Substance use: current Other substance usage details: USES CBD Additional living arrangements comments: [facility] Spiritual care concerns: No Exam Const: General: no acute distress and alert Nutritional Appearance: well nourished Orientation/consciousness: patient oriented x3 HENMT: Head: normal to inspection Eyes: EOM: EOMs intact bilaterally Resp: Effort & Inspection: normal respiratory effort Auscultation: clear to auscultation bilaterally Cardio: Rate: regular rate Rhythm: regular rhythm Heart sounds: no murmurs GI: GI Palp: Yes Soft to palpation, Yes Tenderness to palpation present (GI) (LLq), No Guardin
[2021-10-05 20:02] LABS: Appearance Urine Clear (Clear); Bilirubin Urine Negative (Negative); Blood Urine Trace-lysed (Negative); Color Urine Yellow (Yellow); Glucose Urine UA Negative (Negative); Ketones Urine 1+ mg/dL (Negative); Leukocyte Esterase Ur 1+ LEU/UL (Negative); Nitrate Urine Negative (Negative); Protein Urine Negative (Negative); Specific Grav Ur 1.025 (1.001-1.035); Urobilinogen Urine 0.2 mg/dL (<2.0)
[2021-10-05 20:06] LABS: Mucus Urine Rare /lpf; Squamous Epithelial Cell Urine Moderate /hpf (Few); WBC Urine 16-20 /hpf
[2021-10-05 20:12] LABS: Add Urine Microscopic? YES
[2021-10-05] MEDS: SODIUM CHLORIDE 0.9% IV 1,000 ML 999 ML IV CONT (21:19)
[2021-10-05] MEDS: CEPHALEXIN 500 MG CAPSULE PO (21:31)
[2021-10-05 21:42] VITALS: BP 148/70; PULSE 65; RESP 16; O2SAT 100
== END 2021-10-05 21:55 | disposition home or self-care (01) ==
PROVIDERS: Emergency Medicine; Emergency Provider General Practice; PCP Internal Medicine
DX: K20.90 Esophagitis, unspecified without bleeding (principal); N39.0 Urinary tract infection, site not specified; E78.49 Other hyperlipidemia; E03.9 Hypothyroidism, unspecified; F41.1 Generalized anxiety disorder; F32.A Depression, unspecified; Z87.891 Personal history of nicotine dependence; F12.90 Cannabis use, unspecified, uncomplicated
CPT/HCPCS: 36415; 74177; 80053; 81001; 83690; 85025; 85055; 87086; 87088; 99284; A9270; J0131; J7030; Q9967

== ENCOUNTER 2021-11-21 01:15 | Day surgery (SDC) | payer MEDICARE, OTHER, SELFPAY ==
[2021-10-24 09:29] VITALS: BMI 21.0
[2021-11-21 09:07] VITALS: BP 109/93; PULSE 79; RESP 16; TEMP 36.1; O2SAT 98; BMI 21.1
[2021-11-21] MEDS: LACTATED RINGERS 1,000 ML 150 ML IV CONT (09:16)
--- NOTE | 2021-11-21 09:48 | PM.HPGS ---
History of Present Illness History of Present Illness Consent: Risks, benefits, and alternatives have been discussed and questions answered. Patient agrees to proceed with procedure. Chief complaint: esophagitis Narrative: Shanel Hernández is a 81 year old female I am asked to see at the request of Dr. Lj Rahman. Patient reports that she has a tendency to constipation. Developed low abdominal pain this subsequently resolved. A CT scan was performed which revealed thickening at the distal esophagus. An EGD was requested. Patient denies any heartburn. She has had no bleeding. She has no difficulty swallowing or eating. She has had no change in her weight. Family history is noncontributory. Patient presents today for EGD to evaluate abnormality described on CT scan. Review of Systems Review of Systems: Review of systems noncontributory. [facility] Past Medical History Medical History Anxiety disorder C. difficile colitis Depression Fatigue Hypothyroidism Other hyperlipidemia Sciatica of right side Surgical History Surgical History History of shoulder surgery Family History Family History Mother Patient's mother is Father Patient's father is Social History Social History Smoking packs per day: 0.5 Smoking cigarettes per day: 10.0 Years smoked: 20 Smoking pack-years: 10.00 Smoking status: Former smoker Tobacco type: cigarettes Second hand tobacco smoke exposure: No Smoking end date: 02/17/80 Alcohol intake: current Drinks per week: 2 Alcohol use details: BEER OR WINE Substance use: never Substance use type: does not use Other substance usage details: USES CBD Living arrangements: with family Additional living arrangements comments: [facility] Spiritual care concerns: No Meds Home Medications and Allergies Home Medications Medication Instructions Recorded Confirmed Type bupropion HCl 150 mg 24 hr tablet, 150 mg PO QAM 03/25/21 11/21/21 History extended release cholecalciferol (vitamin D3) 50 50 mcg PO DAILY 03/25/21 11/21/21 History mcg (2,000 unit) capsule cyanocobalamin (vitamin B-12) 100 100 mcg PO DAILY 03/25/21 11/21/21 History mcg tablet ibuprofen 800 mg tablet 800 mg PO BID PRN Pain 03/25/21 11/21/21 History levothyroxine 50 mcg tablet 50 mcg PO QAM 03/25/21 11/21/21 History (Synthroid) memantine 5 mg tablet 5 mg PO QAM 03/25/21 11/21/21 History trazodone 50 mg tablet 50 mg PO HS 03/25/21 11/21/21 History CBD 1 cap BYMOUTH PRN PRN Anxiety 09/20/21 11/21/21 History ropinirole 0.25 mg tablet 0.25 mg PO BID 09/20/21 11/21/21 History omeprazole 20 mg capsule,delayed 20 mg PO DAILY #14 caps 10/05/21 11/21/21 Rx release cetirizine 10 mg tablet (Zyrtec) 10 mg PO DAILY #90 tabs 10/09/21 11/21/21 Rx tramadol 50 mg tablet 50 mg PO Q8H PRN pain #20 tabs 10/09/21 11/21/21 Rx trazodone 100 mg tablet 100 mg PO HS 10/24/21 11/21/21 History Allergies Allergy/AdvReac Type Severity Reaction Status Date / Time bee pollen Allergy Intermediate Swelling Verified 11/21/21 09:05 venom-wasp Allergy Intermediate swelling Verified 11/21/21 09:05 AT SITE adhesive AdvReac Unknown REDNESS Verified 11/21/21 09:05 Vital Signs Vital Signs - 24 hr 11/21/21 09:07 Temperature 96.9 F L Pulse Rate 79 Respiratory Rate 16 Blood Pressure 109/93 H Pulse Oximetry 98 Oxygen Delivery Room Air Exam Narrative: Physical exam reveals patient to be alert. Vital signs stable. HEENT exam is unremarkable. Patient is anicteric. Lungs are clear to auscultation and percussion. Heart is without murmur or extra sounds. Abdomen bowel sounds are present soft nontender with no organomegaly. Assessment and Plan A
--- NOTE | 2021-11-21 10:01 | WPDANESEPPF ---
Anes - Initial Pre Proc Eval Procedure: Operation Date: 11/21/21 10:00 Proposed Procedures p Esophagogastroduodenoscopy - Waqar Dalal MD Date/Time: 11/21/21 10:01 Surgeon: Waqar Dalal MD Pre Op Diagnosis: esophagitis Patient Data Age: 81 Gender: F Height: 1.7 m Weight: 61.1 kg Last Vital Signs Temp 96.9 F L 11/21/21 09:07 Pulse 79 11/21/21 09:07 Resp 16 11/21/21 09:07 BP 109/93 H 11/21/21 09:07 Pulse Ox 98 11/21/21 09:07 O2 Del Method Room Air 11/21/21 09:07 Allergies Allergy/AdvReac Type Severity Reaction Status Date / Time bee pollen Allergy Intermediate Swelling Verified 11/21/21 09:05 venom-wasp Allergy Intermediate swelling Verified 11/21/21 09:05 AT SITE adhesive AdvReac Unknown REDNESS Verified 11/21/21 09:05 Home Medications Medication Instructions Recorded Confirmed Type bupropion HCl 150 mg 24 hr tablet, 150 mg PO QAM 03/25/21 11/21/21 History extended release cholecalciferol (vitamin D3) 50 50 mcg PO DAILY 03/25/21 11/21/21 History mcg (2,000 unit) capsule cyanocobalamin (vitamin B-12) 100 100 mcg PO DAILY 03/25/21 11/21/21 History mcg tablet ibuprofen 800 mg tablet 800 mg PO BID PRN Pain 03/25/21 11/21/21 History levothyroxine 50 mcg tablet 50 mcg PO QAM 03/25/21 11/21/21 History (Synthroid) memantine 5 mg tablet 5 mg PO QAM 03/25/21 11/21/21 History trazodone 50 mg tablet 50 mg PO HS 03/25/21 11/21/21 History CBD 1 cap BYMOUTH PRN PRN Anxiety 09/20/21 11/21/21 History ropinirole 0.25 mg tablet 0.25 mg PO BID 09/20/21 11/21/21 History omeprazole 20 mg capsule,delayed 20 mg PO DAILY #14 caps 10/05/21 11/21/21 Rx release cetirizine 10 mg tablet (Zyrtec) 10 mg PO DAILY #90 tabs 10/09/21 11/21/21 Rx tramadol 50 mg tablet 50 mg PO Q8H PRN pain #20 tabs 10/09/21 11/21/21 Rx trazodone 100 mg tablet 100 mg PO HS 10/24/21 11/21/21 History Patient hx anesthesia problems: none Family hx anesthesia problems: none Results Review: All pre-operative results and documents have been reviewed as part of the pre-operative evaluation. [facility] Past Medical History Medical History Anxiety disorder C. difficile colitis Depression Fatigue Hypothyroidism Other hyperlipidemia Sciatica of right side Surgical History Surgical History History of shoulder surgery Family History Family History Mother Patient's mother is Father Patient's father is Social History Social History Smoking packs per day: 0.5 Smoking cigarettes per day: 10.0 Years smoked: 20 Smoking pack-years: 10.00 Smoking status: Former smoker Tobacco type: cigarettes Second hand tobacco smoke exposure: No Smoking end date: 02/17/80 Alcohol intake: current Drinks per week: 2 Alcohol use details: BEER OR WINE Substance use: never Substance use type: does not use Other substance usage details: USES CBD Living arrangements: with family Additional living arrangements comments: [facility] Spiritual care concerns: No Anes - Eval Final PreProcedure Day of Procedure 11/21/21 10:01 Patient weight: normal Heart: regular rate and rhythm Lungs: clear to auscultation Airway: Mallampati scale class II Neurological: alert and oriented Last oral intake: >/= 8 hours ASA classification: III Emergent: no Anesthetic plan: proceed Anesthesia type and monitoring: general GIVS and standard monitoring Results Review: All pre-operative results and documents have been reviewed as part of the pre-operative evaluation. Informed Consent: The patient's anesthetic plan and its attendant risks and benefits were discussed with the patient/family/POA. Questions were solicited and answers provided to the satisfaction of the
[2021-11-21] MEDS: BENZOCAINE (*SP) 60 ML SPRAY CAN (HURRICAINE) 1 SPRAY MUCOUS MEM (10:02)
[2021-11-21 10:16] VITALS: BP 109/64; PULSE 64; RESP 31; O2SAT 98
[2021-11-21 10:26] VITALS: BP 124/71; PULSE 62; RESP 12; O2SAT 96
[2021-11-21 10:36] VITALS: BP 122/68; PULSE 60; RESP 23; O2SAT 100
== END 2021-11-21 10:44 | disposition home or self-care (01) ==
PROVIDERS: PCP Internal Medicine; Visit Provider Internal Medicine Gastroenterology
PROC: 0DJ08ZZ Inspection of Upper Intestinal Tract, Via Natural or Artificial Opening Endoscopic (ICD-10-PCS; CPT 43235; principal; 2021-11-21 10:00)
DX: R93.3 Abnormal findings on diagnostic imaging of other parts of digestive tract (principal); E03.9 Hypothyroidism, unspecified; F41.9 Anxiety disorder, unspecified; F32.A Depression, unspecified; R53.83 Other fatigue; E78.49 Other hyperlipidemia; Z87.891 Personal history of nicotine dependence
CPT/HCPCS: 43235; J2704; J7120

== ENCOUNTER 2022-03-12 11:06 | Emergency (ER) | payer MEDICARE, OTHER, SELFPAY ==
[2022-03-12] VITALS (22 sets, daily range): BP systolic 90–142; BP diastolic 53–88; PULSE 59–80; RESP 12–34; O2SAT 93–100
--- NOTE | ~2022-03-12 | XR_ITS ---
EXAMINATION: XR chest 1V portable DATE: 03/12/2022 11:55 INDICATION: Chest pain TECHNIQUE: frontal view of the chest was obtained. COMPARISON: Chest radiograph dated 12/01/2012 FINDINGS: Chronic left apical pleural-parenchymal scarring. Mild streaky bibasilar opacities and favor atelecta sis over pneumonia. No pulmonary edema, pleural effusion or pneumothorax. The cardiomediastinal silho uette is normal. Mild S-shaped curvature of the thoracic spine with moderate spondylosis. IMPRESSION: 1. Chronic left apical pleural-parenchymal scarring and mild streaky bibasilar atelectasis. Reviewed, dictated and finalized at location B. LINING MACHINE OPERATOR
--- NOTE | 2022-03-12 11:11 | ECG_ITS ---
Measurements Intervals [place] Rate: 69 P: 87 SD: 161 QRS: 46 QRSD: 97 T: 27 QT: 366 QTc: 393 Interpretive Statements SINUS RHYTHM WITH MARKED SINUS ARRHYTHMIA ATRIAL COUPLET BORDERLINE ST-T WAVE ABNORMALITY- INFERIOR LEADS BASELINE ARTIFACT- I, II, III, AVR, AVL, AVF, V3-V4 BORDERLINE ECG NO PREVIOUS ECG AVAILABLE FOR COMPARISON Electronically Signed On 03-12-2022 11:53:05 FILM PAINTER by Dragan Stafford D.O.
[2022-03-12 11:46] LABS: Basophils Percent Auto 0.8 % (0.2-1.2); Eosinophils Absolute Auto 0.1 K/mm3 (0-0.3); Eosinophils Percent Auto 1.1 % (0-4.4); Hemoglobin 12.2 g/dL (12.0-15.0); Immature Granulocyte Absolute 0.02 K/mm3 (0.00-0.031); Immature Granulocyte Percent A 0.4 % (0-0.5); Lymphocytes Absolute Auto 2.14 K/mm3 (0.9-3.2); Lymphocytes Percent Auto 45.4 % (18.3-44.2); Mean Corpuscular HGB Conc 33.9 g/dl (32-36); Mean Corpuscular Hemoglobin 32.7 pg (26-34); Mean Corpuscular Volume 96.5 fl (80-100); Mean Platelet Volume 11.1 fl (7.4-10.4); Monocytes Absolute Auto 0.4 K/mm3 (0.1-0.6); Monocytes Percent Auto 8.5 % (2.6-8.5); Neutrophils Absolute Auto 2.1 K/mm3 (1.3-6.7); Neutrophils Percent Auto 43.8 % (45.5-73.1); Platelet Count Result 147 k/mm3 (150-375); Red Blood Count 3.73 M/mm3 (4.2-5.4); Red Cell Distribution Width 13.6 % (11.5-14.5); White Blood Count 4.7 K/mm3 (4.5-10.0)
[2022-03-12 11:48] LABS: Alanine Aminotransferase 19 U/L (6-35); Albumin Level 4.3 g/dL (3.5-5.1); Alkaline Phosphatase 43 U/L (38-126); Anion Gap 7 mmol/L (8-16); Aspartate Amino Transferase 24 U/L (14-36); Bilirubin,Total 0.5 mg/dL (0.2-1.3); Blood Urea Nitrogen 29 mg/dL (7-17); Calcium 9.5 mg/dL (8.4-10.2); Carbon Dioxide 24 mmol/L (22-30); Chloride 105 mmol/L (98-107); Estimated CRCL calculation 40 ml/min; Estimated Glomerular Filt Rate 60; Glucose 106 mg/dL (65-110); Lipase 44 U/L (23-300); Potassium 3.9 mmol/L (3.4-5.0); Sodium 136 mmol/L (137-145)
[2022-03-12 11:53] LABS: INR 1.1; Partial Thromboplastin Time 24.1 SECONDS (22.3-36.8); Prothrombin Time 13.4 Seconds (11.1-14.7)
--- NOTE | 2022-03-12 11:56 | ED.CHESTPAIN ---
HPI - Chest Pain General Chief Complaint: Chest Pain Stated Complaint: chest painx 30 mins Time Seen by Provider: 03/12/22 11:15 History of Present Illness HPI narrative: 81-year-old female presenting to the emergency department for evaluation of left-sided chest pain. Patient states that she was at rest at home sitting on the couch when she had onset of the left lower chest pain. Patient states the pain stays localized and did not radiate to her back shoulder arm jaw or abdomen. Patient was still complaining of pain upon arrival to the emergency department but during my initial exam patient states the pain has resolved. At time of my examination patient has no complaints at this time. Patient does have a history of Alzheimer's dementia and is being taken care of by her at home. states that he has no home health services but does feel he is starting to become overwhelmed with her health care. Related Data Home Medications Medication Instructions Recorded Confirmed bupropion HCl 150 mg 24 hr tablet, 150 mg PO QAM 03/25/21 11/26/21 extended release ibuprofen 800 mg tablet 800 mg PO BID PRN Pain 03/25/21 11/26/21 levothyroxine 50 mcg tablet 50 mcg PO QAM 03/25/21 11/26/21 (Synthroid) trazodone 50 mg tablet 50 mg PO HS 03/25/21 11/26/21 ropinirole 0.25 mg tablet 0.25 mg PO BID 09/20/21 11/26/21 trazodone 100 mg tablet 100 mg PO HS 10/24/21 11/26/21 alprazolam 0.25 mg tablet 0.25 mg PO DAILY 11/26/21 11/26/21 omeprazole 10 mg capsule,delayed 10 mg PO DAILY 12/19/21 release Allergies Allergy/AdvReac Type Severity Reaction Status Date / Time bee pollen Allergy Intermediate Swelling Verified 03/12/22 11:07 venom-wasp Allergy Intermediate swelling Verified 03/12/22 11:07 AT SITE adhesive AdvReac Unknown REDNESS Verified 03/12/22 11:07 Review of Systems Review of Systems: CONSTITUTIONAL: Denies fever, chills, or sweats. EYES: Denies visual changes, redness, or discharge. ENT: Denies rhinorrhea, congestion, sore throat, or otalgia. CARDIOVASCULAR: See HPI RESPIRATORY: Denies cough or dyspnea. GASTROINTESTINAL: Denies abdominal pain, nausea, vomiting, or diarrhea. GENITOURINARY: Denies dysuria or hematuria. SKIN: Denies rash or itching. MUSCULOSKELETAL: Denies back pain, joint pain, or myalgia. NEUROLOGIC: Denies headache, numbness, or weakness. [facility] Past Medical History Medical History Anxiety disorder C. difficile colitis Depression Fatigue Hypothyroidism Other hyperlipidemia Sciatica of right side Surgical History Surgical History History of shoulder surgery Family History Family History Mother Patient's mother is Father Patient's father is Social History Social History (Updated 12/19/21 @ 15:20 by Hortencia Doyle MA) Smoking packs per day: 0.5 Smoking cigarettes per day: 10.0 Years smoked: 20 Smoking pack-years: 10.00 Smoking status: Former smoker Tobacco type: cigarettes Second hand tobacco smoke exposure: No Smoking end date: 02/17/80 Alcohol intake: current Drinks per week: 2 Alcohol use details: BEER OR WINE Substance use: never Substance use type: does not use Other substance usage details: USES CBD Lack of Transportation: No Lack of Food: Never True Current Housing: I Have Housing Concerned About Future Housing: No Difficulty Paying Gas/Electric Bills: No Difficulty Paying for Meds: No Currently Unemployed: No Education: Bachelor's Degree Difficulty w/ Childcare or Family Care: No Living arrangements: with family Additional living arrangements comments: [facility] Spiritual care concerns: No Exam Narrative: APPEARANCE: Well appearing, no pain, no distress, well-nourished. HEAD: normocephalic, atraumatic. EYES: PERR
[2022-03-12 12:00] LABS: Troponin I < 0.012 ng/mL (0.000-0.034)
[2022-03-12] MEDS: LORazepam INJ (*CRX) 2 MG/ML VIAL 0.5 MG IV PUSH (12:16)
--- NOTE | 2022-03-12 14:13 | PCCCNOTE ---
Called to ER to assist with getting home health services for pt. 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 Referral made to [facility] and information sent. given phone number to follow up tomorrow. Information on [place] Department of Aging to see if state resources are available.
[2022-03-12 14:50] LABS: Troponin I < 0.012 ng/mL (0.000-0.034)
== END 2022-03-12 15:50 | disposition home or self-care (01) ==
PROVIDERS: Emergency Provider Emergency Medicine; PCP Internal Medicine
DX: R07.89 Other chest pain (principal); F41.9 Anxiety disorder, unspecified; F32.9 Major depressive disorder, single episode, unspecified; E03.9 Hypothyroidism, unspecified; E78.5 Hyperlipidemia, unspecified
CPT/HCPCS: 36415; 71045; 80053; 83690; 84484; 85025; 85055; 85610; 85730; 93005; 96374; 99284; J2060

== ENCOUNTER 2022-03-28 12:28 | Outpatient (CLI) | payer MEDICARE, OTHER, SELFPAY ==
[2022-03-28 13:42] LABS: SARS-CoV-2 RNA PCR Positive
== END 2022-03-28 12:29 | disposition home or self-care (01) ==
LOC: ANHLAB 12:30
PROVIDERS: PCP Internal Medicine; Visit Provider Internal Medicine
DX: U07.1 COVID-19 (principal)
CPT/HCPCS: U0003; U0005

== ENCOUNTER 2022-03-30 07:59 | Emergency (ER) | payer MEDICARE, OTHER, SELFPAY ==
--- NOTE | ~2022-03-30 | XR_ITS ---
XR chest 1V portable DATE: 03/30/2022 08:25 INDICATION: Syncope. Diarrhea. Covid-positive. TECHNIQUE: Portable upright AP chest on March 30, 2022 at 0817 hours COMPARISON: March 12, 2022 portable AP chest at 1152 hours FINDINGS: Bilateral hyperinflation. No pulmonary infiltrate or consolidation. Left apical capping/sca rring. No pleural effusion or pulmonary vascular congestion or pneumothorax. Normal heart size. Thoracic aortic calcification. Diffuse osteopenia. IMPRESSION: Moderate hyperinflation; no active cardiopulmonary disease or significant change since Reviewed, dictated and finalized at location A. NCIAL EXAMINER IMPRESSION: Moderate hyperinflation; no active cardiopulmonary disease or signi ficant change since 03/12/2022
[2022-03-30 07:56] VITALS: BP 126/65; PULSE 52; RESP 18; TEMP 37; O2SAT 97
--- NOTE | 2022-03-30 08:03 | ECG_ITS ---
Measurements Intervals [place] Rate: 60 P: 81 SC: 165 QRS: 37 QRSD: 93 T: -16 QT: 301 QTc: 301 Interpretive Statements SINUS arrhythmia WITH OCCASIONAL SUPRAVENTRICULAR PREMATURE COMPLEXES NONSPECIFIC T-WAVE ABNORMALITY COMPARED TO ECG 03/12/2022 11:19:36 NO SIGNIFICANT CHANGE Electronically Signed On 03-30-2022 8:41:22 COMMUNITY ASSISTANT by Elvira Khan M.D.
--- NOTE | 2022-03-30 08:04 | ED.SYNCOPE ---
HPI - Syncope General Chief Complaint: Syncope Stated Complaint: syncopal, COVID + 03/27/22 Time Seen by Provider: 03/30/22 08:03 History of Present Illness HPI narrative: This is an 81-year-old female with past medical history of hypothyroidism, Alzheimer's, diagnosed with COVID 3 days ago and started on Paxlovid, brought in by EMS after syncopal episode. The patient states that she has had multiple episodes of nonbloody diarrhea. Shortly after waking today she felt lightheaded and lost consciousness. Patient's states prior to syncopal episode, the patient was standing, she complained of feeling dizzy and nauseous, needed to use the bathroom, then lost consciousness, landing in a seated position in her chair. He denies head injury. EMS reports patient's pulse ranged from the 40s to the 60s in route and sinus rhythm. Pressures remained in the 120s and the patient was A&O x4. Blood glucose noted at 189. Related Data Home Medications Medication Instructions Recorded Confirmed bupropion HCl 150 mg 24 hr tablet, 150 mg PO QAM 03/25/21 11/26/21 extended release ibuprofen 800 mg tablet 800 mg PO BID PRN Pain 03/25/21 11/26/21 trazodone 50 mg tablet 50 mg PO HS 03/25/21 11/26/21 ropinirole 0.25 mg tablet 0.25 mg PO BID 09/20/21 11/26/21 trazodone 100 mg tablet 100 mg PO HS 10/24/21 11/26/21 alprazolam 0.25 mg tablet 0.25 mg PO DAILY 11/26/21 11/26/21 omeprazole 10 mg capsule,delayed 10 mg PO DAILY 12/19/21 release Allergies Allergy/AdvReac Type Severity Reaction Status Date / Time bee pollen Allergy Intermediate Swelling Verified 03/30/22 08:12 venom-wasp Allergy Intermediate swelling Verified 03/30/22 08:12 AT SITE adhesive AdvReac Unknown REDNESS Verified 03/30/22 08:12 Review of Systems Review of Systems: CONSTITUTIONAL: Denies fever, chills, or sweats. EYES: Denies visual changes, redness, or discharge. ENT: Denies rhinorrhea, congestion, sore throat, or otalgia. CARDIOVASCULAR: Denies chest pain, palpitations, or edema. RESPIRATORY: Denies cough or dyspnea. GASTROINTESTINAL: Nonbloody diarrhea denies abdominal pain, nausea, vomiting, GENITOURINARY: Denies dysuria or hematuria. SKIN: Denies rash or itching. MUSCULOSKELETAL: Denies back pain, joint pain, or myalgia. NEUROLOGIC: Syncope denies headache, numbness, dizziness, or weakness. PSYCHIATRIC: Denies anxiety or depression. PMFSH Past Medical History Medical History Anxiety disorder C. difficile colitis Depression Fatigue Hypothyroidism Other hyperlipidemia Sciatica of right side Surgical History Surgical History History of shoulder surgery Family History Family History Mother Patient's mother is Father Patient's father is Social History Social History Smoking packs per day: 0.5 Smoking cigarettes per day: 10.0 Years smoked: 20 Smoking pack-years: 10.00 Smoking status: Former smoker Tobacco type: cigarettes Second hand tobacco smoke exposure: No Smoking end date: 02/17/80 Alcohol intake: current Drinks per week: 2 Alcohol use details: BEER OR WINE Substance use: never Substance use type: does not use Other substance usage details: USES CBD Lack of Transportation: No Lack of Food: Never True Current Housing: I Have Housing Concerned About Future Housing: No Difficulty Paying Gas/Electric Bills: No Difficulty Paying for Meds: No Currently Unemployed: No Education: Bachelor's Degree Difficulty w/ Childcare or Family Care: No Living arrangements: with family Additional living arrangements comments: [facility] Spiritual care concerns: No Exam Narrative: GENERAL: Well-developed, well-nourished, and in no acute distress.
[2022-03-30 08:08] VITALS: PULSE 50
[2022-03-30 08:10] VITALS: O2SAT 97
[2022-03-30 08:11] VITALS: BP 126/56; PULSE 56; RESP 19; O2SAT 97
[2022-03-30] MEDS: SODIUM CHLORIDE 0.9% IV 1,000 ML 999 ML IV CONT (08:15)
[2022-03-30 08:27] LABS: Basophils Percent Auto 0.4 % (0.2-1.2); Hematocrit 35.5 % (37.0-47.0); Hemoglobin 11.8 g/dL (12.0-15.0); Immature Granulocyte Absolute 0.02 K/mm3 (0.00-0.031); Immature Granulocyte Percent A 0.4 % (0-0.5); Immature Platelet Fraction Pct 8.6 % (0.9-11.2); Lymphocytes Percent Auto 21.5 % (18.3-44.2); Mean Corpuscular HGB Conc 33.2 g/dl (32-36); Mean Corpuscular Hemoglobin 32.5 pg (26-34); Mean Corpuscular Volume 97.8 fl (80-100); Mean Platelet Volume 11.3 fl (7.4-10.4); Monocytes Absolute Auto 0.4 K/mm3 (0.1-0.6); Monocytes Percent Auto 6.6 % (2.6-8.5); Neutrophils Percent Auto 71.1 % (45.5-73.1); Platelet Count Result 116 k/mm3 (150-375); Red Blood Count 3.63 M/mm3 (4.2-5.4); Red Cell Distribution Width 13.6 % (11.5-14.5); White Blood Count 5.6 K/mm3 (4.5-10.0)
[2022-03-30 08:34] LABS: Glucose Point of Care 162 mg/dl (65-105)
[2022-03-30 08:41] LABS: Alanine Aminotransferase 36 U/L (6-35); Alkaline Phosphatase 52 U/L (38-126); Anion Gap 8 mmol/L (8-16); Aspartate Amino Transferase 48 U/L (14-36); Bilirubin,Total 0.7 mg/dL (0.2-1.3); Blood Urea Nitrogen 25 mg/dL (7-17); Calcium 8.5 mg/dL (8.4-10.2); Carbon Dioxide 20 mmol/L (22-30); Chloride 101 mmol/L (98-107); Estimated CRCL calculation 38 ml/min; Estimated Glomerular Filt Rate 60; Glucose 161 mg/dL (65-110); Potassium 3.5 mmol/L (3.4-5.0); Sodium 129 mmol/L (137-145)
[2022-03-30 08:52] LABS: Troponin I < 0.012 ng/mL (0.000-0.034)
[2022-03-30 08:56] LABS: Appearance Urine Clear (Clear); Bilirubin Urine Negative (Negative); Blood Urine Trace-lysed (Negative); Color Urine Yellow (Yellow); Glucose Urine UA Negative (Negative); Ketones Urine Negative (Negative); Leukocyte Esterase Ur Trace LEU/UL (Negative); Nitrate Urine Negative (Negative); Protein Urine Trace mg/dL (Negative); Specific Grav Ur 1.025 (1.001-1.035); Urobilinogen Urine 0.2 mg/dL (<2.0); pH Urine 5.5 (5.0-9.0)
[2022-03-30 09:22] LABS: Mucus Urine Rare /lpf; Squamous Epithelial Cell Urine Rare /hpf (Few); WBC Urine 51-75 /hpf
[2022-03-30 09:29] LABS: Add Urine Microscopic? YES
[2022-03-30 11:05] VITALS: BP 152/76; PULSE 78; RESP 18; O2SAT 99
== END 2022-03-30 11:06 | disposition home or self-care (01) ==
PROVIDERS: Emergency Provider Preventive Medicine Aerospace Medicine; PCP Internal Medicine
DX: R55 Syncope and collapse (principal); T37.5X5A Adverse effect of antiviral drugs, initial encounter; U07.1 COVID-19; G30.9 Alzheimer's disease, unspecified; F02.80 Dementia in other diseases classified elsewhere, unspecified severity, without behavioral disturbance, psychotic disturbance, mood disturbance, and anxiety; E78.49 Other hyperlipidemia; E03.9 Hypothyroidism, unspecified; F41.9 Anxiety disorder, unspecified; F32.A Depression, unspecified; Z87.891 Personal history of nicotine dependence; R82.998 Other abnormal findings in urine; I49.1 Atrial premature depolarization; R94.31 Abnormal electrocardiogram [ECG] [EKG]
CPT/HCPCS: 36415; 51701; 71045; 80053; 81001; 82948; 83735; 84484; 85025; 85055; 87086; 87088; 93005; 96360; 99284; J7030

== ENCOUNTER 2022-04-06 13:45 | Inpatient (IN) | payer MEDICARE, OTHER, SELFPAY ==
[2022-04-06] VITALS (10 sets, daily range): BP systolic 91–171; BP diastolic 52–95; PULSE 52–76; RESP 14–29; TEMP 36.6; O2SAT 95–100
--- NOTE | ~2022-04-06 | CT_ITS ---
EXAMINATION: CT brain wo con DATE: 04/06/2022 14:38 INDICATION: ams . TECHNIQUE: Computed tomography (CT) of the head was performed without intravenous contrast. The mA wa s adjusted according to patient size. Iterative reconstruction technique was employed. The dose-lengt h product was 908.00 mGy-cm. COMPARISON: None. FINDINGS: No acute intracranial hemorrhage or extra-axial fluid collection. No hydrocephalus, mass, or herniation. No acute ischemic infarct. Unremarkable dural venous sinus attenuation. No acute osseous abnormality. The aerated spaces are clear. Mild atrophy and chronic white matter change. Atherosclerotic intracranial calcification. 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 IMPRESSION: No acute intracranial process. Reviewed, dictated and finalized at location K. RIAL DISPATCHER
--- NOTE | ~2022-04-06 | XR_ITS ---
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 RESULT: Lines, tubes, and devices: None. Lungs and pleura: Senescent/emphysematous change. Pulmonary granulomas. Apical pleural capping. Cardiomediastinal silhouette: Stable. Hilar and mediastinal calcified nodes. Other: No acute osseous or upper abdominal finding. IMPRESSION: No acute cardiopulmonary process. Reviewed, dictated and finalized at location K. GN RELEASE ENGINEER
--- NOTE | 2022-04-06 13:54 | ED.WEAKNESS ---
HPI - Weakness General Chief complaint: Weakness Stated complaint: weakness, AMS (alzheimers pt) Time Seen by Provider: 04/06/22 13:48 Source: family Limitations: dementia History of Present Illness HPI Narrative: Patient is 81 years old white female brought to the emergency room by her and son was telling me that patient have long history of Alzheimer disease, recently unable to sit still, restless, and he is so exhausted cannot take care of her. And would like her to be placed to some place like dementia center. Patient had history of COVID 2 weeks ago. Still coughing. Patient is DNR Related Data Home Medications Medication Instructions Recorded Confirmed bupropion HCl 150 mg 24 hr tablet, 150 mg PO QAM 03/25/21 11/26/21 extended release ibuprofen 800 mg tablet 800 mg PO BID PRN Pain 03/25/21 11/26/21 trazodone 50 mg tablet 50 mg PO HS 03/25/21 11/26/21 ropinirole 0.25 mg tablet 0.25 mg PO BID 09/20/21 11/26/21 trazodone 100 mg tablet 100 mg PO HS 10/24/21 11/26/21 alprazolam 0.25 mg tablet 0.25 mg PO DAILY 11/26/21 11/26/21 omeprazole 10 mg capsule,delayed 10 mg PO DAILY 12/19/21 release Allergies Allergy/AdvReac Type Severity Reaction Status Date / Time bee pollen Allergy Intermediate Swelling Verified 04/06/22 14:11 venom-wasp Allergy Intermediate swelling Verified 04/06/22 14:11 AT SITE adhesive AdvReac Unknown REDNESS Verified 04/06/22 14:11 Review of Systems Review of Systems: All systems reviewed & are unremarkable except as noted in HPI and below PMFSH Past Medical History Medical History (Updated 04/06/22 @ 16:02 by Rosie Conner NP) Anxiety disorder C. difficile colitis Dementia Depression Fatigue Hypothyroidism Other hyperlipidemia RLS (restless legs syndrome) Sciatica of right side Surgical History Surgical History (Updated 04/06/22 @ 16:05 by Rosie Conner NP) History of bunionectomy of both great toes History of carpal tunnel release History of removal of pigmented skin lesion History of shoulder surgery Family History Family History Mother Patient's mother is Father Patient's father is Social History Social History (Updated 04/06/22 @ 16:08 by Rosie Conner NP) Social History: lives with . 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 [employer] code status: dnr Smoking packs per day: 0.5 Smoking cigarettes per day: 10.0 Years smoked: 20 Smoking pack-years: 10.00 Smoking status: Former smoker Tobacco type: cigarettes Second hand tobacco smoke exposure: No Smoking end date: 02/17/80 Alcohol intake: current Drinks per week: 2 Alcohol use details: BEER OR WINE Substance use: never Substance use type: does not use Other substance usage details: USES CBD Lack of Transportation: No Lack of Food: Never True Current Housing: I Have Housing Concerned About Future Housing: No Difficulty Paying Gas/Electric Bills: No Difficulty Paying for Meds: No Currently Unemployed: No Education: Bachelor's Degree Difficulty w/ Childcare or Family Care: No Living arrangements: with family Additional living arrangements comments: HUSB Spiritual care concerns: No Exam Narrative: General appearance: Well-developed, well-nourished, restless Skin: Normal color Head: Normocephalic, nontraumatic Eyes: Clear conjunctiva ENT: Oropharynx normal, ears normal, nose normal Neck: Supple, nontender Chest and respiratory: Airway patent, no respiratory distress, no accessory muscle use Heart: Regular rate/rhythm Abdomen: Soft, nontender, no organomegaly, quiet bowel sounds Vascular: Normal peripheral pulses, normal capillary refill. Musculoskeletal: Normal range of motion, nontender back Neurologic: Alert, disoriented x4
--- NOTE | 2022-04-06 13:57 | ECG_ITS ---
Measurements Intervals [place] Rate: 65 P: 81 MA: 173 QRS: 44 QRSD: 88 T: 46 QT: 367 QTc: 382 Interpretive Statements SINUS RHYTHM WITH OCCASIONAL SUPRAVENTRICULAR PREMATURE COMPLEXES NONSPECIFIC T-WAVE ABNORMALITY BORDERLINE ECG COMPARED TO ECG 03/30/2022 07:59:20 SINUS RHYTHM NOW PRESENT Electronically Signed On 04-06-2022 15:00:33 INCLUSION SPECIALIST by Lg Graves M.D.
[2022-04-06 14:44] LABS: Basophils Percent Auto 0.4 % (0.2-1.2); Eosinophils Percent Auto 0.4 % (0-4.4); Hematocrit 34.4 % (37.0-47.0); Hemoglobin 11.8 g/dL (12.0-15.0); Immature Granulocyte Absolute 0.01 K/mm3 (0.00-0.031); Immature Granulocyte Percent A 0.2 % (0-0.5); Immature Platelet Fraction Pct 10.7 % (0.9-11.2); Lymphocytes Absolute Auto 1.73 K/mm3 (0.9-3.2); Lymphocytes Percent Auto 37.3 % (18.3-44.2); Mean Corpuscular HGB Conc 34.3 g/dl (32-36); Mean Corpuscular Hemoglobin 32.6 pg (26-34); Mean Platelet Volume 11.7 fl (7.4-10.4); Monocytes Absolute Auto 0.6 K/mm3 (0.1-0.6); Monocytes Percent Auto 12.5 % (2.6-8.5); Neutrophils Absolute Auto 2.3 K/mm3 (1.3-6.7); Neutrophils Percent Auto 49.2 % (45.5-73.1); Platelet Count Result 147 k/mm3 (150-375); Red Blood Count 3.62 M/mm3 (4.2-5.4); Red Cell Distribution Width 13.1 % (11.5-14.5); White Blood Count 4.6 K/mm3 (4.5-10.0)
[2022-04-06 14:48] LABS: Appearance Urine Slightly Cloudy (Clear); Bilirubin Urine Negative (Negative); Blood Urine Trace-intact (Negative); Color Urine Yellow (Yellow); Glucose Urine UA Negative (Negative); Ketones Urine Trace mg/dL (Negative); Leukocyte Esterase Ur 2+ LEU/UL (Negative); Nitrate Urine Negative (Negative); Protein Urine 1+ mg/dL (Negative)
[2022-04-06 14:53] LABS: Alanine Aminotransferase 30 U/L (6-35); Albumin Level 4.2 g/dL (3.5-5.1); Alkaline Phosphatase 50 U/L (38-126); Anion Gap 8 mmol/L (8-16); Aspartate Amino Transferase 43 U/L (14-36); Bilirubin,Total 0.7 mg/dL (0.2-1.3); Blood Urea Nitrogen 22 mg/dL (7-17); Calcium 8.8 mg/dL (8.4-10.2); Carbon Dioxide 26 mmol/L (22-30); Chloride 103 mmol/L (98-107); Estimated CRCL calculation 29 ml/min; Estimated Glomerular Filt Rate 53; Glucose 105 mg/dL (65-110); Potassium 3.6 mmol/L (3.4-5.0); Sodium 137 mmol/L (137-145)
[2022-04-06] MEDS: LORazepam INJ (*CRX) 2 MG/ML VIAL 0.5 MG IV PUSH (15:03)
[2022-04-06 15:16] LABS: Mucus Urine Few /lpf; Squamous Epithelial Cell Urine Rare /hpf (Few); WBC Urine >75 /hpf
[2022-04-06 15:17] LABS: Influenza A QL RT-PCR Negative (Negative); Influenza B QL RT-PCR Negative (Negative); SARS-CoV-2 RNA PCR Positive
[2022-04-06 15:19] LABS: Add Urine Microscopic? YES
--- NOTE | 2022-04-06 15:59 | PM.IMHP ---
H&P: HPI History of Present Illness Date/Time: 04/06/22 15:59 Chief Complaint: Weakness Narrative: This is an 81-year-old female patient who has a history of dementia. She lives at home with her . The patient has been very confused all night long and has not slept. She has not been eating or drinking very well. Her has been taking care of her and also had his son helped today. They are both were out feels that there can no longer take care of her at home. They are trying to place the patient into a memory care unit. The patient had COVID 2 weeks ago and is still coughing. The patient has gone downhill since she has had COVID 2 weeks ago. Her memory is very poor and the patient refuses to eat. Her H&H is 11.8 and 34.4 which is at her baseline. Patient was positive for urinary tract infection. Patient still remains positive for COVID. Head CT shows no acute intracranial process. Chest x-ray shows no acute cardiopulmonary process. The patient was given IV Ativan and Rocephin. She was resting well when I assessed her. The patient is being admitted to observation status on the date of service of 04/06/2022. Review of Systems Review of Systems: See HPI All systems reviewed & are unremarkable except as noted in HPI and below Constitutional: Constitutional: Reports as per HPI and Reports no additional constitutional complaints Eyes: Eyes: Reports as per HPI and Reports no additional eye complaints ENT: Reports system reviewed and no additional complaints, except as documented and Reports Normal hearing present Cardiovascular: Cardiovascular: Reports no additional cardiovascular complaints Respiratory: Respiratory: Reports no additional respiratory complaints and Reports no additional respiratory complaints Gastrointestinal: Gastrointestinal: Reports as per HPI and Reports no additional gastrointestinal complaints Musculoskeletal: Musculoskeletal: Reports no additional musculoskeletal complaints Integumentary/Breasts: Skin/Breast: Reports system reviewed and no additional complaints, except as docu and Reports as per HPI Neurologic: Reports system reviewed and no additional complaints, except as documented, Reports as per HPI and Reports Normal hearing present Psychiatric: Psychiatric: Reports no additional psychiatric complaints and Reports as per HPI Endocrine: Endocrine: Reports no additional endocrine complaints Hematologic/Lymphatic: Hematologic/Lymphatic: Reports no additional hematologic/lymphatic complaints Allergic/Immunologic: Allergic/Immunologic: Reports no additional allergic/immunologic complaints [facility] Past Medical History Medical History (Updated 02/19/23 @ 16:02 by Rosie Conner NP) Anxiety disorder C. difficile colitis Dementia Depression Fatigue Hypothyroidism Other hyperlipidemia RLS (restless legs syndrome) Sciatica of right side Surgical History Surgical History (Updated 04/06/22 @ 19:24 by Rosie Conner NP) H/O hand surgery Trigger finger History of bunionectomy of both great toes History of carpal tunnel release History of removal of pigmented skin lesion History of shoulder surgery Family History Family History Mother Patient's mother is Father Patient's father is Social History Social History (Updated 04/06/22 @ 19:26 by Rosie Conner NP) Social History: She lives with her . 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 She is a former smoker. code status: dnr Smoking packs per day: 0.5 Smoking cigarettes per day: 10.0 Years smoked: 20 Smoking pack-years: 10.00 Smoking status: Former smoker Tobacco type: cigarettes Second hand tobacco smoke exposure: No Smoking end date: 02/16/79 Alcohol intake: former Drinks per week: 2 Alcohol use details: BEER OR WINE Substance use: never S
--- NOTE | 2022-04-06 17:17 | ADMGEN ---
This patient, Shanel Hernández, was admitted to Medical Room 344-01. Patient/family oriented to hospital policies and general routines including ID bracelet, bed and alarms, visiting hours, pain management, procedures, bathroom and other care routines, personal items, smoking policy, room service/diet, and visiting hours. Information on how to activate the Rapid Response Team has been discussed. Patient/Family are encouraged to report perceived risks to care and to ask questions if they do not understand what they are told or what they should do.
[2022-04-06 20:28] LABS: Glucose Point of Care 97 mg/dl (65-105)
[2022-04-07] VITALS (7 sets, daily range): BP systolic 130; BP diastolic 70; PULSE 71–82; RESP 14–18; TEMP 36.6–36.7; O2SAT 68–100; BMI 16.7
[2022-04-07] MEDS: LORazepam INJ (*CRX) 2 MG/ML VIAL 0.5 MG IV PUSH ×3 (00:45→16:30)
[2022-04-07 05:52] LABS: Basophils Percent Auto 0.4 % (0.2-1.2); Eosinophils Percent Auto 0.5 % (0-4.4); Hemoglobin 13.4 g/dL (12.0-15.0); Immature Granulocyte Absolute 0.03 K/mm3 (0.00-0.031); Immature Granulocyte Percent A 0.4 % (0-0.5); Lactic Acid Reflex 2.2 mmol/L (0.7-2.0); Lymphocytes Absolute Auto 1.87 K/mm3 (0.9-3.2); Lymphocytes Percent Auto 25.6 % (18.3-44.2); Mean Corpuscular HGB Conc 35.3 g/dl (32-36); Mean Corpuscular Hemoglobin 32.6 pg (26-34); Mean Corpuscular Volume 92.5 fl (80-100); Mean Platelet Volume 11.3 fl (7.4-10.4); Monocytes Absolute Auto 0.7 K/mm3 (0.1-0.6); Monocytes Percent Auto 9.7 % (2.6-8.5); Neutrophils Absolute Auto 4.6 K/mm3 (1.3-6.7); Neutrophils Percent Auto 63.4 % (45.5-73.1); Platelet Count Result 151 k/mm3 (150-375); Red Blood Count 4.11 M/mm3 (4.2-5.4); Red Cell Distribution Width 12.7 % (11.5-14.5); White Blood Count 7.3 K/mm3 (4.5-10.0)
[2022-04-07] MEDS: LEVOTHYROXINE SODIUM 50 MCG TABLET PO (06:14)
[2022-04-07 07:30] LABS: Free T4 Free Thyroxine Reflex 2.04 ng/dL (0.78-2.19)
[2022-04-07 08:21] LABS: Total Triiodothyronine (T3) 0.73 NG/ML (0.97-1.69)
[2022-04-07 08:35] LABS: Reflex Lactic Acid Yes or No Add Lactic
[2022-04-07 08:59] LABS: Lactic Acid 1.7 mmol/L (0.7-2.0)
[2022-04-07] MEDS: PROPRANOLOL HCL 10 MG TABLET PO ×3 (09:08→16:32)
[2022-04-07] MEDS: MEMANTINE 10 MG TABLET PO ×2 (09:09→16:33)
[2022-04-07] MEDS: FLUTICASONE PROPIONATE 0.05% NA SPR 16 GM BTL (*BKC) 2 SPRAY NASAL (09:09)
--- NOTE | 2022-04-07 12:00 | PM.IMPN ---
Progress Note: A&P Assessment and Plan (1) Urinary tract infection: Code(s): N39.0 - Urinary tract infection, site not specified Status: Acute Assessment and Plan: UA peers infectious Urine culture pending Continue Rocephin for now Tailor antibiotics to culture sensitivities Trend urine output (2) Alzheimer disease: Code(s): G30.9 - Alzheimer's disease, unspecified; F02.80 - Dementia in other diseases classified elsewhere, unspecified severity, without behavioral disturbance, psychotic disturbance, mood disturbance, and anxiety Status: Acute Assessment and Plan: Chronic at this point Continue home Namenda Unable to reorient A&O x1 Trend mood Could be an exacerbation due to infection (3) Anxiety disorder: Code(s): F41.9 - Anxiety disorder, unspecified Status: Acute Assessment and Plan: p.r.n. 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 is going to go to view some facilities. Time Spent With Patient Time: 53 minutes Time with patient: Greater than 35 minutes Subjective Date/time seen: 04/07/22 1200 Interval history: 04/07/22 1200 Patient seems to be very restless however she is nonverbal to me at this time. was in the room answered his questions. Complete review of systems unable to be obtained due to patient's mental status. 04/06/22? 15:59 This is an 81-year-old female patient who has a history of dementia.? She lives at home with her .? The patient has been very confused all night long and has not slept.? She has not been eating or drinking very well.? Her has been taking care of her and also had his son helped today.? They are both were out feels that there can no longer take care of her at home.? They are trying to place the patient into a memory care unit.? The patient had COVID 2 weeks ago and is still coughing.? The patient has gone downhill since she has had COVID 2 weeks ago.? Her memory is very poor and the patient refuses to eat.? Her H&H is 11.8 and 34.4 which is at her baseline.? Patient was positive for urinary tract infection.? Patient still remains positive for COVID.? Head CT shows no acute intracranial process.? Chest x-ray shows no acute cardiopulmonary process.? The patient was given IV Ativan and Rocephin.? She was resting well when I assessed her.? The patient is being admitted to observation status on the date of service of 04/06/2022. Review of Systems Review of Systems: ROS unobtainable: Yes unobtainable due to medical condition and unobtainable due to mental status Exam Narrative: General: well-nourished, well-appearing 81-year-old female, laying in bed, comfortable, NARD Neuro: awake, alert and oriented x0, follows some commands HEENMT: normocephalic, atraumatic, EOMI, sclerae anicteric, moist oral mucosa Respiratory: Clear to auscultation bilaterally without crackles, rhonchi or wheezes, nonlabored breathing Cardio: regular rate, regular rhythm with S1-S2 Abdomen: nondistended, normoactive bowel sounds, soft, nontender to palpation Extremities: no edema, erythema, or tenderness to palpation, DP pulses 2+ bilaterally Skin: no rashes or lesions, warm and dry Psych: appropriate mood and affect, judgment and insight
[2022-04-07 15:37] LABS: Basophils Percent Auto 0.4 % (0.2-1.2); Eosinophils Percent Auto 0.4 % (0-4.4); Hematocrit 37.7 % (37.0-47.0); Hemoglobin 13.3 g/dL (12.0-15.0); Immature Granulocyte Absolute 0.02 K/mm3 (0.00-0.031); Immature Granulocyte Percent A 0.4 % (0-0.5); Lymphocytes Absolute Auto 1.89 K/mm3 (0.9-3.2); Mean Corpuscular HGB Conc 35.3 g/dl (32-36); Mean Corpuscular Hemoglobin 32.4 pg (26-34); Mean Corpuscular Volume 91.7 fl (80-100); Mean Platelet Volume 11.3 fl (7.4-10.4); Monocytes Absolute Auto 0.5 K/mm3 (0.1-0.6); Monocytes Percent Auto 10.3 % (2.6-8.5); Neutrophils Absolute Auto 2.8 K/mm3 (1.3-6.7); Neutrophils Percent Auto 52.5 % (45.5-73.1); Platelet Count Result 156 k/mm3 (150-375); Red Blood Count 4.11 M/mm3 (4.2-5.4); Red Cell Distribution Width 12.8 % (11.5-14.5); White Blood Count 5.3 K/mm3 (4.5-10.0)
[2022-04-07 15:46] LABS: Alanine Aminotransferase 27 U/L (6-35); Albumin Level 3.9 g/dL (3.5-5.1); Alkaline Phosphatase 51 U/L (38-126); Anion Gap 6 mmol/L (8-16); Aspartate Amino Transferase 46 U/L (14-36); Bilirubin,Total 0.9 mg/dL (0.2-1.3); Blood Urea Nitrogen 17 mg/dL (7-17); Calcium 8.4 mg/dL (8.4-10.2); Carbon Dioxide 25 mmol/L (22-30); Chloride 100 mmol/L (98-107); Estimated CRCL calculation 41 ml/min; Estimated Glomerular Filt Rate > 60; Glucose 113 mg/dL (65-110); Magnesium 1.9 mg/dL (1.6-2.3); Potassium 2.9 mmol/L (3.4-5.0); Sodium 131 mmol/L (137-145)
[2022-04-07] MEDS: traZODone HCL 50 MG TABLET PO (20:01)
[2022-04-08 06:00] VITALS: BP 126/70; PULSE 78; RESP 18; TEMP 36.6; O2SAT 97
[2022-04-08] MEDS: LEVOTHYROXINE SODIUM 50 MCG TABLET PO (06:27)
[2022-04-08] MEDS: FLUTICASONE PROPIONATE 0.05% NA SPR 16 GM BTL (*BKC) 2 SPRAY NASAL (09:44)
[2022-04-08] MEDS: MEMANTINE 10 MG TABLET PO ×2 (09:44→17:26)
[2022-04-08] MEDS: ENOXAPARIN 40 MG/0.4 ML SYRINGE SUB-Q (09:44)
[2022-04-08 09:45] VITALS: PULSE 75
[2022-04-08] MEDS: PROPRANOLOL HCL 10 MG TABLET PO ×3 (09:45→17:26)
[2022-04-08] MEDS: POTASSIUM CHLORIDE 20 MEQ TABLET 40 MEQ PO (11:35)
[2022-04-08] MEDS: POTASSIUM CHLORIDE INJ 40 MEQ in SODIUM CHLORIDE 0.9% IV 500 ML 130 MEQ IVPB (11:35)
--- NOTE | 2022-04-08 12:15 | PM.IMPN ---
Progress Note: A&P Assessment and Plan (1) Urinary tract infection: Code(s): N39.0 - Urinary tract infection, site not specified Status: Acute Assessment and Plan: UA peers infectious Urine culture grew streptococcus viridans group Continue Rocephin for now, can probably switch to cefdinir for discharge Tailor antibiotics to culture sensitivities Trend urine output (2) Alzheimer disease: Code(s): G30.9 - Alzheimer's disease, unspecified; F02.80 - Dementia in other diseases classified elsewhere, unspecified severity, without behavioral disturbance, psychotic disturbance, mood disturbance, and anxiety Status: Acute Assessment and Plan: Chronic at this point Continue home Namenda Unable to reorient A&O x1 Trend mood Could be an exacerbation due to infection (3) Anxiety disorder: Code(s): F41.9 - Anxiety disorder, unspecified Status: Acute Assessment and Plan: p.r.n. 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 is going to go to view some facilities. Time Spent With Patient Time: 48 minutes Time with patient: Greater than 35 minutes Subjective Date/time seen: 04/08/22 1215 Interval history: 04/08/22 121 Patient is doing ok. She walked to the door an back with me. She stated that she thought her legs were tired. She also denies any chest pain, shortness of breath, nausea, vomiting, diarrhea, or constipation. She is sitting in the chair. She does appear to get this gaspy sensation, which she stated it anxiety. She is really worried that she is going to have to sell her home. 04/07/22 1200 Patient seems to be very restless however she is nonverbal to me at this time. was in the room answered his questions. Complete review of systems unable to be obtained due to patient's mental status. 04/06/22? 15:59 This is an 81-year-old female patient who has a history of dementia.? She lives at home with her .? The patient has been very confused all night long and has not slept.? She has not been eating or drinking very well.? Her has been taking care of her and also had his son helped today.? They are both were out feels that there can no longer take care of her at home.? They are trying to place the patient into a memory care unit.? The patient had COVID 2 weeks ago and is still coughing.? The patient has gone downhill since she has had COVID 2 weeks ago.? Her memory is very poor and the patient refuses to eat.? Her H&H is 11.8 and 34.4 which is at her baseline.? Patient was positive for urinary tract infection.? Patient still remains positive for COVID.? Head CT shows no acute intracranial process.? Chest x-ray shows no acute cardiopulmonary process.? The patient was given IV Ativan and Rocephin.? She was resting well when I assessed her.? The patient is being admitted to observation status on the date of service of 04/06/2022. Review of Systems Review of Systems: ROS unobtainable: Yes unobtainable due to mental status Exam Narrative: General: well-nourished, well-appearing 81-year-old female, laying in bed, comfortable, NARD Neuro: awake, alert and oriented x0, follows some commands HEENMT: normocephalic, atraumatic, EOMI, sclerae anicteric, moist
[2022-04-08 13:56] VITALS: PULSE 82
[2022-04-08 17:08] VITALS: BP 114/79; PULSE 91; RESP 16; TEMP 36.7; O2SAT 98
[2022-04-08 17:26] VITALS: PULSE 72
--- NOTE | 2022-04-08 17:56 | PC.NURSE ---
Family educated to not get pt up and walk her around the room. repeatedly getting her up. Chair alarm is going off, but I believe may be turning off her bed alarm. Will continue to provide education on the importance of safety and avoiding falls.
[2022-04-08] MEDS: LORazepam INJ (*CRX) 2 MG/ML VIAL 0.5 MG IV PUSH (18:19)
[2022-04-08 19:23] VITALS: BP 138/75; PULSE 71; RESP 18; TEMP 36.6; O2SAT 97
[2022-04-08] MEDS: traZODone HCL 50 MG TABLET PO (21:25)
[2022-04-09] MEDS: LORazepam INJ (*CRX) 2 MG/ML VIAL 0.5 MG IV PUSH ×4 (02:12→23:04)
[2022-04-09 05:19] VITALS: BP 151/89; PULSE 72; RESP 18; TEMP 36.6; O2SAT 100
[2022-04-09 06:09] LABS: Basophils Percent Auto 0.3 % (0.2-1.2); Eosinophils Percent Auto 0.2 % (0-4.4); Hematocrit 35.4 % (37.0-47.0); Hemoglobin 12.4 g/dL (12.0-15.0); Immature Granulocyte Absolute 0.01 K/mm3 (0.00-0.031); Immature Granulocyte Percent A 0.2 % (0-0.5); Lymphocytes Absolute Auto 2.43 K/mm3 (0.9-3.2); Lymphocytes Percent Auto 42.3 % (18.3-44.2); Mean Corpuscular Hemoglobin 32.5 pg (26-34); Mean Corpuscular Volume 92.7 fl (80-100); Mean Platelet Volume 11.6 fl (7.4-10.4); Monocytes Absolute Auto 0.6 K/mm3 (0.1-0.6); Monocytes Percent Auto 10.4 % (2.6-8.5); Neutrophils Absolute Auto 2.7 K/mm3 (1.3-6.7); Neutrophils Percent Auto 46.6 % (45.5-73.1); Platelet Count Result 148 k/mm3 (150-375); Red Blood Count 3.82 M/mm3 (4.2-5.4); Red Cell Distribution Width 13.2 % (11.5-14.5); White Blood Count 5.8 K/mm3 (4.5-10.0)
[2022-04-09] MEDS: LEVOTHYROXINE SODIUM 50 MCG TABLET PO (06:09)
[2022-04-09 06:22] LABS: Alanine Aminotransferase 27 U/L (6-35); Alkaline Phosphatase 46 U/L (38-126); Anion Gap 7 mmol/L (8-16); Aspartate Amino Transferase 47 U/L (14-36); Bilirubin,Total 0.8 mg/dL (0.2-1.3); Blood Urea Nitrogen 26 mg/dL (7-17); Calcium 8.6 mg/dL (8.4-10.2); Carbon Dioxide 23 mmol/L (22-30); Chloride 104 mmol/L (98-107); Estimated CRCL calculation 36 ml/min; Estimated Glomerular Filt Rate > 60; Glucose 91 mg/dL (65-110); Magnesium 2.2 mg/dL (1.6-2.3); Potassium 3.5 mmol/L (3.4-5.0); Sodium 134 mmol/L (137-145)
[2022-04-09 08:27] VITALS: PULSE 77
[2022-04-09] MEDS: MEMANTINE 10 MG TABLET PO ×2 (08:27→16:21)
[2022-04-09] MEDS: PROPRANOLOL HCL 10 MG TABLET PO ×3 (08:27→16:20)
[2022-04-09] MEDS: FLUTICASONE PROPIONATE 0.05% NA SPR 16 GM BTL (*BKC) 2 SPRAY NASAL (08:27)
[2022-04-09] MEDS: ENOXAPARIN 40 MG/0.4 ML SYRINGE SUB-Q (08:28)
--- NOTE | 2022-04-09 09:46 | PCPTNOTE ---
Attempted to see patient for PT, however patient declined. Patient was resting in bed upon entering and declined therapy, patient reported she wants to rest. Per nursing patient had a rough night and did not sleep at all.
--- NOTE | 2022-04-09 12:30 | PM.IMPN ---
Progress Note: A&P Assessment and Plan (1) Urinary tract infection: Code(s): N39.0 - Urinary tract infection, site not specified Status: Acute Assessment and Plan: UA peers infectious Urine culture grew streptococcus viridans group Continue Rocephin for now, can probably switch to cefdinir for discharge Tailor antibiotics to culture sensitivities Trend urine output (2) Alzheimer disease: Code(s): G30.9 - Alzheimer's disease, unspecified; F02.80 - Dementia in other diseases classified elsewhere, unspecified severity, without behavioral disturbance, psychotic disturbance, mood disturbance, and anxiety Status: Acute Assessment and Plan: Chronic at this point Continue home Namenda Unable to reorient A&O x2 Trend mood Could be an exacerbation due to infection (3) Anxiety disorder: Code(s): F41.9 - Anxiety disorder, unspecified Status: Acute Assessment and Plan: p.r.n. 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 She stated that she is feeling ok today. She currently denies any chest pain, shortness of breath, nausea, vomiting, diarrhea, constipation, weakness, or fatigue. She stated that she did not sleep very well. 04/08/22 1215 Patient is doing ok. She walked to the door an back with me. She stated that she thought her legs were tired. She also denies any chest pain, shortness of breath, nausea, vomiting, diarrhea, or constipation. She is sitting in the chair. She does appear to get this gaspy sensation, which she stated it anxiety. She is really worried that she is going to have to sell her home. 04/07/22 1200 Patient seems to be very restless however she is nonverbal to me at this time. was in the room answered his questions. Complete review of systems unable to be obtained due to patient's mental status. 04/06/22? 15:59 This is an 81-year-old female patient who has a history of dementia.? She lives at home with her .? The patient has been very confused all night long and has not slept.? She has not been eating or drinking very well.? Her has been taking care of her and also had his son helped today.? They are both were out feels that there can no longer take care of her at home.? They are trying to place the patient into a memory care unit.? The patient had COVID 2 weeks ago and is still coughing.? The patient has gone downhill since she has had COVID 2 weeks ago.? Her memory is very poor and the patient refuses to eat.? Her H&H is 11.8 and 34.4 which is at her baseline.? Patient was positive for urinary tract infection.? Patient still remains positive for COVID.? Head CT shows no acute intracranial process.? Chest x-ray shows no acute cardiopulmonary process.? The patient was given IV Ativan and Rocephin.? She was resting well when I assessed her.? The patient is being admitted to observation status on the date of service of 04/06/2022. Review of Systems Review of Systems: ROS unobtainable: Yes unobtainable due to medical condition Exam Narrative: General: well-nourished, well-appearing 81-year-old female,
[2022-04-09 13:41] VITALS: PULSE 85
[2022-04-09 14:00] VITALS: BP 147/76; PULSE 81; RESP 12; TEMP 36.6; O2SAT 98
[2022-04-09 16:20] VITALS: PULSE 83
[2022-04-09 19:50] VITALS: BP 133/73; PULSE 72; RESP 16; TEMP 36.6; O2SAT 98
[2022-04-09] MEDS: CEFDINIR 300 MG CAPSULE PO (19:55)
[2022-04-09] MEDS: traZODone HCL 50 MG TABLET PO (19:55)
[2022-04-10 04:47] VITALS: BP 128/72; PULSE 71; RESP 16; TEMP 36.4; O2SAT 98
[2022-04-10] MEDS: LEVOTHYROXINE SODIUM 50 MCG TABLET PO (06:08)
[2022-04-10] MEDS: CEFDINIR 300 MG CAPSULE PO (09:00)
[2022-04-10] MEDS: ENOXAPARIN 40 MG/0.4 ML SYRINGE SUB-Q (09:00)
[2022-04-10] MEDS: FLUTICASONE PROPIONATE 0.05% NA SPR 16 GM BTL (*BKC) 2 SPRAY NASAL (09:00)
[2022-04-10] MEDS: MEMANTINE 10 MG TABLET PO (09:00)
[2022-04-10 09:01] VITALS: PULSE 96
[2022-04-10] MEDS: PROPRANOLOL HCL 10 MG TABLET PO (09:01)
--- NOTE | 2022-04-10 09:15 | PM.DS ---
DS: Admitting Diagnosis Discharge Date 04/10/22914 Admitting Diagnosis UTI, generalized weakness, severe and worsening dementia DS: Discharge Diagnosis Discharge Diagnosis (1) Urinary tract infection: Code(s): N39.0 - Urinary tract infection, site not specified Status: Acute Assessment and Plan: UA appears infectious Urine culture grew streptococcus viridans group Continue Rocephin for now, switch to cefdinir for discharge Tailor antibiotics to culture sensitivities Trend urine output (2) Alzheimer disease: Code(s): G30.9 - Alzheimer's disease, unspecified; F02.80 - Dementia in other diseases classified elsewhere, unspecified severity, without behavioral disturbance, psychotic disturbance, mood disturbance, and anxiety Status: Acute Assessment and Plan: Chronic at this point Continue home Namenda Can be reoriented at this point A&O x2 Trend mood Could be an exacerbation due to infection (3) Anxiety disorder: Code(s): F41.9 - Anxiety disorder, unspecified Status: Acute Assessment and Plan: p.r.n. Ativan (4) Hypothyroidism: Code(s): E03.9 - Hypothyroidism, unspecified Status: Acute Assessment and Plan: TSH 4.410, T4 2.04, T3 0.73 continue levothyroxine (5) Depression: Qualifiers: Active/Remission status: currently active Depression Type: major depressive disorder Major depression episode severity: mild Major depression recurrence: recurrent Qualified Code(s): F33.0 - Major depressive disorder, recurrent, mild Code(s): F32.9 - Major depressive disorder, single episode, unspecified Status: Acute Assessment and Plan: continue with divalproex DS: Summary Hospital Course Hospital Course: Patient is an 81-year-old female with past medical history of dementia, COVID, anxiety, depression who presented to the ED with her and son for increased confusion, lack of appetite, caregiver burden. According the the patient was diagnosed with COVID about 2 weeks ago. Since then patient has severely declined. Upon arrival it was noted that patient did have an infectious appearing a. Head CT was also performed and showed no intracranial process. Chest x-ray showed no acute cardiopulmonary process. Patient had been started on IV ceftriaxone which did improve her mental status. Urine culture came back with Streptococcus viridans group. IV ceftriaxone had been switched to cefdinir. Patient should be able to discharge as she is stable per labs and vital signs. Currently patient denies any chest pain, shortness a breath, nausea, vomiting, diarrhea or constipation. Anxiety is a significant issue however medication is not controlling anxiety. Labs and vital signs are stable. Patient stable for discharge at this time. Patient will be discharged to a rehab facility. Status at Discharge Functional status at discharge: uses cane/walker Overall status at discharge: patient is progressing back to baseline Time Spent with Patient Time attestation: Total time spent providing and/or coordinating discharge services: 58 minutes Time spent: Greater than 30 minutes Specific discharge activities: Diagnostic testing, chart review, developing a treatment plan, education, care coordination documentation, physical exam, result review Exam Narrative: General: well-nourished, well-appearing 81-year-old female, laying in bed, comfortable, NARD Neuro: awake, alert and oriented x2, follows some commands HEENMT: normocephalic, atraumatic, EOMI, sclerae anicteric, moist oral mucosa Respiratory: Clear to auscultation bilaterally without crackles, rhonchi or wheezes, nonlabored breathing Cardio: regular rate, regular rhythm with S1-S2 Abdomen: nondistended, normoactive bowel sounds, soft, nontender to palpation Extremities: no edema, erythema, or t
== END 2022-04-10 11:10 | disposition home or self-care (01) | DRG 689 ==
LOC: ANHED 15:19 → ANH3MED 16:40
PROVIDERS: Nurse Practitioner; Admitting Provider Hospitalist; Emergency Provider Emergency Medicine; PCP Internal Medicine; Visit Provider Nurse Practitioner
DX: N39.0 Urinary tract infection, site not specified (principal); U07.1 COVID-19; F33.0 Major depressive disorder, recurrent, mild; B95.4 Other streptococcus as the cause of diseases classified elsewhere; G30.9 Alzheimer's disease, unspecified; F02.80 Dementia in other diseases classified elsewhere, unspecified severity, without behavioral disturbance, psychotic disturbance, mood disturbance, and anxiety; E03.9 Hypothyroidism, unspecified; E78.5 Hyperlipidemia, unspecified; F41.9 Anxiety disorder, unspecified; G25.81 Restless legs syndrome; Z87.891 Personal history of nicotine dependence; Z66 Do not resuscitate
CPT/HCPCS: 36415; 70450; 71045; 80053; 81001; 82948; 83605; 83735; 84439; 84443; 84480; 85025; 85027; 85055; 87040; 87077; 87086; 87088; 87636; 93005; 96365; 96367; 96374; 96375; 96376; 97161; 97166; 97530; 99285; A9270; G0378; J0131; J0696; J1650; J2060; J3480; J7040

== ENCOUNTER 2022-04-14 13:47 | Emergency (ER) | payer MEDICARE, OTHER, SELFPAY ==
[2022-04-14] VITALS (10 sets, daily range): BP systolic 101–161; BP diastolic 63–96; PULSE 60–72; RESP 16–20; TEMP 36.1; O2SAT 97–100
--- NOTE | ~2022-04-14 | CT_ITS ---
EXAMINATION: CTA brain carotid DATE: 04/14/2022 15:46 INDICATION: Head and neck pain. TECHNIQUE: Computed tomographic angiography (CTA) of the head was performed without and with 100 mL O mnipaque-350 intravenous contrast. CTA of the neck was performed with intravenous contrast. Automated exposure control and iterative reconstruction technique were employed. The dose-length product was 1 930.52 mGy-cm. Maximum intensity projection and volume rendered 3D-reconstructions were created by hesham bray technologist on a separate workstation. COMPARISON: Head CT 04/06/2022, brain MRI 03/28/2021 FINDINGS: HEAD CTA: There is no intracranial hemorrhage, acute infarction, or abnormal intracranial mass lesion . There are scattered areas of low attenuation in the cerebral white matter, which is within normal l imits for the patient's age. The ventricles are normal in size. The paranasal sinuses are clear. The orbits are normal. The mastoid air cells are normal. The vertebral arteries are codominant. There is no significant stenosis of basilar artery or the posterior cerebral arteries. There is no significant stenosis of the intracranial internal carotid arteries or anterior or middle cerebral arteries. 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 NECK CTA: There is mild scarring at the lung apices. There are no pathologically enlarged lymph nodes . There is no significant stenosis of the vertebral arteries. There is no visible plaque in the proxi mal internal carotid arteries. There is 0% stenosis of the proximal right internal carotid artery rel ative to normal distal artery lumen diameter (NASCET criteria). There is 0% stenosis of the proximal left internal carotid artery relative to normal distal artery lumen diameter. There is severe cervica l spondylosis. IMPRESSION: 1. 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 2. 0% stenosis of the proximal internal carotid arteries relative to normal distal artery lumen diame ters (NASCET criteria). Reviewed, dictated and finalized at location A. RETARDER OPERATOR IMPRESSION: 1. 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 2. 0% stenosis of the proximal internal carotid arteries relative to normal dis ruth artery lumen diameters (NASCET criteria).
--- NOTE | 2022-04-14 14:20 | ECG_ITS ---
Measurements Intervals [place] Rate: 61 P: 94 FL: 167 QRS: 54 QRSD: 98 T: 19 QT: 417 QTc: 422 Interpretive Statements SINUS RHYTHM WITH SINUS ARRHYTHMIA BASELINE ARTIFACT BORDERLINE ECG COMPARED TO ECG 04/06/2022 14:03:28 SINUS ARRHYTHMIA NOW PRESENT Electronically Signed On 04-14-2022 14:41:55 REGISTRATION REPRESENTATIVE by Lg Graves M.D.
[2022-04-14 14:33] LABS: Basophils Percent Auto 0.5 % (0.2-1.2); Eosinophils Percent Auto 0.2 % (0-4.4); Hematocrit 36.2 % (37.0-47.0); Hemoglobin 12.2 g/dL (12.0-15.0); Immature Granulocyte Absolute 0.02 K/mm3 (0.00-0.031); Immature Granulocyte Percent A 0.3 % (0-0.5); Lymphocytes Absolute Auto 1.55 K/mm3 (0.9-3.2); Lymphocytes Percent Auto 23.4 % (18.3-44.2); Mean Corpuscular HGB Conc 33.7 g/dl (32-36); Mean Corpuscular Hemoglobin 32.4 pg (26-34); Mean Corpuscular Volume 96.3 fl (80-100); Mean Platelet Volume 11.7 fl (7.4-10.4); Monocytes Absolute Auto 0.4 K/mm3 (0.1-0.6); Monocytes Percent Auto 6.3 % (2.6-8.5); Neutrophils Absolute Auto 4.6 K/mm3 (1.3-6.7); Neutrophils Percent Auto 69.3 % (45.5-73.1); Platelet Count Result 167 k/mm3 (150-375); Red Blood Count 3.76 M/mm3 (4.2-5.4); White Blood Count 6.6 K/mm3 (4.5-10.0)
[2022-04-14 14:43] LABS: Alanine Aminotransferase 35 U/L (6-35); Albumin Level 4.6 g/dL (3.5-5.1); Alkaline Phosphatase 53 U/L (38-126); Anion Gap 8 mmol/L (8-16); Aspartate Amino Transferase 42 U/L (14-36); Blood Urea Nitrogen 52 mg/dL (7-17); Calcium 9.8 mg/dL (8.4-10.2); Carbon Dioxide 25 mmol/L (22-30); Chloride 103 mmol/L (98-107); Estimated CRCL calculation 23 ml/min; Estimated Glomerular Filt Rate 39; Glucose 106 mg/dL (65-110); Potassium 3.7 mmol/L (3.4-5.0); Sodium 136 mmol/L (137-145)
--- NOTE | 2022-04-14 15:04 | ED.HA ---
HPI - Headache General Chief Complaint: Headache Stated Complaint: ABURTO weakness Time Seen by Provider: 04/14/22 14:33 History of Present Illness HPI Narrative: History primarily provided by the patient's This is an 81-year-old female with past history of dementia, hypothyroidism, discharged from this facility 4 days ago for UTI, presents to the emergency department complaining of headache. Patient's states headaches are unusual for her and appears to have been worsening over the past 4 days. Today he noticed the patient was leaning to the right while walking and noticed that her left eyelid appeared to droop compared to the right. Related Data Home Medications Medication Instructions Recorded Confirmed ibuprofen 800 mg tablet 800 mg PO BID PRN Pain 03/25/21 04/06/22 trazodone 50 mg tablet 50 mg PO HS 03/25/21 04/06/22 divalproex 250 mg tablet,delayed 250 mg PO HS 04/06/22 04/06/22 release fluticasone propionate 50 2 spray intranasal DAILY 04/06/22 04/06/22 mcg/actuation nasal spray,suspension lorazepam 0.5 mg tablet 0.5 mg PO BID 04/06/22 04/06/22 propranolol 10 mg tablet 10 mg PO TID 04/06/22 04/06/22 Allergies Allergy/AdvReac Type Severity Reaction Status Date / Time bee pollen Allergy Intermediate Swelling Verified 04/14/22 14:06 venom-wasp Allergy Intermediate swelling Verified 04/14/22 14:06 AT SITE adhesive AdvReac Unknown REDNESS Verified 04/14/22 14:06 Review of Systems Review of Systems: Review of systems limited due to patient's baseline dementia CONSTITUTIONAL: Denies fever, chills, or sweats. EYES: Denies visual changes, redness, or discharge. CARDIOVASCULAR: Denies chest pain, palpitations, or edema. RESPIRATORY: Denies cough or dyspnea. NEUROLOGIC: Headache denies numbness, dizziness, PSYCHIATRIC: Anxiety denies depression. [facility] Past Medical History Medical History Anxiety disorder C. difficile colitis Dementia Depression Fatigue Hypothyroidism Other hyperlipidemia RLS (restless legs syndrome) Sciatica of right side Surgical History Surgical History H/O hand surgery Trigger finger History of bunionectomy of both great toes History of carpal tunnel release History of removal of pigmented skin lesion History of shoulder surgery Family History Family History Mother Patient's mother is Father Patient's father is Social History Social History Social History: She lives with her . 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. She is a former smoker. code status: dnr Smoking packs per day: 0.5 Smoking cigarettes per day: 10.0 Years smoked: 20 Smoking pack-years: 10.00 Smoking status: Former smoker Tobacco type: cigarettes Second hand tobacco smoke exposure: No Smoking end date: 02/16/79 Alcohol intake: former Drinks per week: 2 Alcohol use details: BEER OR WINE Substance use: never Substance use type: does not use Other substance usage details: USES CBD Lack of Transportation: No Lack of Food: Never True Current Housing: I Have Housing Concerned About Future Housing: No Difficulty Paying Gas/Electric Bills: No Difficulty Paying for Meds: No Currently Unemployed: No Education: Bachelor's Degree Difficulty w/ Childcare or Family Care: No Living arrangements: with family Additional living arrangements comments: [facility]USB Spiritual care concerns: No Exam Narrative: GENERAL: Well-developed, well-nourished, appears anxious HEAD: Normocephalic, atraumatic. Mild left ptosis. EYES: PERRLA and EOMI. ENT: Nares clear, no rhinorrhea or epistaxis. Mucous membranes moist. Oropharynx without tonsillar hypertro
[2022-04-14 15:16] LABS: Appearance Urine Clear (Clear); Bilirubin Urine 1+ (Negative); Blood Urine Negative (Negative); Color Urine Yellow (Yellow); Glucose Urine UA Negative (Negative); Ketones Urine 1+ mg/dL (Negative); Leukocyte Esterase Ur Negative LEU/UL (Negative); Nitrate Urine Negative (Negative); Protein Urine 2+ mg/dL (Negative); Specific Grav Ur 1.025 (1.001-1.035); Urobilinogen Urine 0.2 mg/dL (<2.0)
[2022-04-14 15:27] LABS: Mucus Urine Rare /lpf; RBC Urine 0-2 /hpf (0-2); Squamous Epithelial Cell Urine Occasional /hpf (Few); WBC Urine 0-3 /hpf
[2022-04-14 15:30] LABS: Add Urine Microscopic? YES
[2022-04-14] MEDS: SODIUM CHLORIDE 0.9% IV 1,000 ML 999 ML IV CONT (16:21)
[2022-04-14 16:45] LABS: Influenza A QL RT-PCR Negative (Negative); Influenza B QL RT-PCR Negative (Negative); SARS-CoV-2 RNA PCR Positive
[2022-04-14] MEDS: PROCHLORPERAZINE EDISYLATE 10 MG/2 ML VIAL IV PUSH (16:59)
[2022-04-14] MEDS: diphenhydrAMINE HCl INJ 50 MG/ML VIAL 25 MG IV PUSH (16:59)
== END 2022-04-14 18:43 | disposition short-term general hospital (02) ==
PROVIDERS: Emergency Medicine; Emergency Provider Preventive Medicine Aerospace Medicine; PCP Internal Medicine
DX: I67.1 Cerebral aneurysm, nonruptured (principal); U07.1 COVID-19; R51.9 Headache, unspecified; F03.90 Unspecified dementia, unspecified severity, without behavioral disturbance, psychotic disturbance, mood disturbance, and anxiety; E03.9 Hypothyroidism, unspecified; E78.49 Other hyperlipidemia; F41.9 Anxiety disorder, unspecified; F32.A Depression, unspecified; G25.81 Restless legs syndrome; Z87.891 Personal history of nicotine dependence; R94.31 Abnormal electrocardiogram [ECG] [EKG]
CPT/HCPCS: 36415; 70496; 70498; 80053; 81001; 85025; 85610; 85730; 87636; 93005; 96361; 96365; 96375; 99285; J0131; J0780; J1200; J7030; Q9967